=== PATIENT | female | born 1980 | race Caucasian/White ===

== ENCOUNTER 2020-12-26 23:33 | Emergency (ER) | payer BC, MEDICAID ==
--- NOTE | 2020-12-27 01:07 | EDM.PDOC ---
ED HPI GENERAL MEDICAL PROBLEM - General Stated Complaint: LEG CRAMPS Time Seen by Provider: 12/27/20 00:59 Source of Information: Reports: Patient History Limitations: Reports: No Limitations - History of Present Illness INITIAL COMMENTS - FREE TEXT/NARRATIVE: 40-year-old female past medical history insulin-dependent diabetes, frequent yeast infections, frequent UTIs presents for multiple complaints. Patient notes that she has been out of her medications for roughly 5 weeks due to medical insurance issues. She is due to get medical insurance reinstated in February. Patient did get a box of medications tonight. Patient states that since around 8 PM she has had cramping to her legs. She notes that she has had symptoms of UTI for several days and has been drinking a lot of fluids which she notes contributes to her leg cramping in the past. The cramping is worse in the left leg from the ankle up to the knee although she is also experiencing cramping in the right ankle. She states that this happens very frequently but normally goes away after several minutes however tonight it is not going away. Patient notes that she think she has a yeast infection as well. bilateral legs Pain Score (Numeric/FACES): 7 - Related Data Allergies Allergy/AdvReac Type Severity Reaction Status Date / Time codeine Allergy Rash Verified 12/27/20 01:21 Home Meds: Home Meds Fluconazole [Diflucan] 200 mg PO DAILY 7 Days #7 tablet 12/27/20 [Rx] Gabapentin [Neurontin] 300 mg PO BID 12/27/20 [History] Insulin Glargine,Hum.Rec.Anlog [Semglee] 100 units SUBCUT DAILY 12/27/20 [History] Insulin Lispro [Admelog] 17 units SUBCUT QID 12/27/20 [History] Lixisenatide [Adlyxin] 22 units SUBCUT DAILY 12/27/20 [History] ED ROS GENERAL - Review of Systems Review Of Systems: Comprehensive ROS is negative, except as noted in HPI. ED EXAM, GENERAL - Physical Exam Exam: See Below Exam Limited By: No Limitations General Appearance: Alert, WD/WN, No Apparent Distress Ears: Hearing Grossly Normal Throat/Mouth: Normal Voice, No Airway Compromise Head: Atraumatic, Normocephalic Neck: Normal Inspection Respiratory/Chest: No Respiratory Distress, Lungs Clear, Normal Breath Sounds, No Accessory Muscle Use Cardiovascular: Normal Peripheral Pulses, Regular Rate, Rhythm GI/Abdominal: Soft, Non-Tender Extremities: Normal Inspection, Other (No swelling, erythema, edema of bilateral lower extremities) Neurological: Alert, Oriented Psychiatric: Normal Affect, Normal Mood Skin Exam: Warm, Dry, Intact, Normal Color Course - Vital Signs Last Recorded V/S: Last Vital Signs Temp 98 F 12/27/20 01:10 Pulse 105 H 12/27/20 01:10 Resp 18 12/27/20 01:10 BP 132/85 12/27/20 01:10 Pulse Ox 94 L 12/27/20 01:10 - Orders/Labs/Meds Orders: Active Orders 24 hr Category Date Time Status Blood Glucose Check, Bedside [RC] ONETIME Care 12/27/20 01:12 Active Saline Lock Insert [OM.PC] Stat Oth 12/27/20 01:12 Ordered Labs: Laboratory Tests 12/27/20 12/27/20 12/27/20 Range/Units 01:25 01:25 01:25 WBC 12.28 H (4.0-11.0) K/uL RBC 5.13 (4.30-5.90) M/uL Hgb 14.1 (12.0-16.0) g/dL Hct 41.0 (36.0-46.0) % MCV 79.9 L (80.0-98.0) fL MCH 27.5 (27.0-32.0) pg MCHC 34.4 (31.0-37.0) g/dL RDW Std Deviation 38.4 (28.0-62.0) fl RDW Coeff of Tiffany 14 (11.0-15.0) % Plt Count 262 (150-400) K/uL MPV 11.50 (7.40-12.00) fL Neut % (Auto) 62.7 (48.0-80.0) % Lymph % (Auto) 28.8 (16.0-40.0) % Teller % (Auto) 7.3 (0.0-15.0) % Eos % (Auto) 0.9 (0.0-7.0) % Baso % (Auto) 0.3 (0.0-1.5) % Neut # (Auto) 7.7 H (1.4-5.7) K/uL Lymph # (Auto) 3.5 H (0.6-2.4) K/uL Teller # (Auto) 0.9 H (0.0-0.8) K/uL Eos # (Auto) 0.1 (0.0-0.7) K/uL Baso # (Auto) 0.0 (0.0-0.1) K/uL Sodium 136 (136-145) mmol/L Potassium 3.9 (3.5-5.1) mmol/L Chloride 99 (98-107) mmol/L Carbon Dioxide 28.2 (21.0-32.0) mmol/L BUN 11 (7.0-18.0) mg/dL Creatinine 0.8 (0.6-1.0) mg/dL Est Cr Clr Drug Dosing 95.24 mL/min Estimated GFR (MDRD) > 60.0 ml/min Glucose 319 H (74-106) mg/dL POC Glucose 310 H (70-99) mg/dL Calcium 8.6 (8.5-10.1) mg/dL Magnesium 1.6 L (1.8-2.4) mg/dL Total Bilirubin 0.3 (0.2-1.0) mg/dL AST 16 (15-37) IU/L ALT 21 (14-63) IU/L Alkaline Phosphatase 107 (46-116) U/L Total Protein 7.3 (6.4-8.2) g/dL Albumin 3.7 (3.4-5.0) g/dL Globulin 3.6 (2.6-4.0) g/dL Albumin/Globulin Ratio 1.0 (0.9-1.6) Urine Color Urine Appearance Urine pH (5.0-8.0) Ur Specific [place] (1.001-1.035) Urine Protein (NEGATIVE) mg/dL Urine Glucose (UA) (NEGATIVE) mg/dL Urine Ketones (NEGATIVE) mg/dL Urine Occult Blood (NEGATIVE) Urine Nitrite (NEGATIVE) Urine Bilirubin (NEGATIVE) Urine Urobilinogen (<2.0) EU/dL Ur Leukocyte Esterase (NEGATIVE) Urine HCG, Qual (NEGATIVE) 12/27/20 12/27/20 12/27/20 Range/Units 02:50 02:50 02:51 WBC (4.0-11.0) K/uL RBC (4.30-5.90) M/uL Hgb (12.0-16.0) g/dL Hct (36.0-46.0) % MCV (80.0-98.0) fL MCH (27.0-32.0) pg MCHC (31.0-37.0) g/dL RDW Std Deviation (28.0-62.0) fl RDW Coeff of Tiffany (11.0-15.0) % Plt Count (150-400) K/uL MPV (7.40-12.00) fL Neut % (Auto) (48.0-80.0) % Lymph % (Auto) (16.0-40.0) % Teller % (Auto) (0.0-15.0) % Eos % (Auto) (0.0-7.0) % Baso % (Auto) (0.0-1.5) % Neut # (Auto) (1.4-5.7) K/uL Lymph # (Auto) (0.6-2.4) K/uL Teller # (Auto) (0.0-0.8) K/uL Eos # (Auto) (0.0-0.7) K/uL Baso # (Auto) (0.0-0.1) K/uL Sodium (136-145) mmol/L Potassium (3.5-5.1) mmol/L Chloride (98-107) mmol/L Carbon Dioxide (21.0-32.0) mmol/L BUN (7.0-18.0) mg/dL Creatinine (0.6-1.0) mg/dL Est Cr Clr Drug Dosing mL/min Estimated GFR (MDRD) ml/min Glucose (74-106) mg/dL POC Glucose 344 H (70-99) mg/dL Calcium (8.5-10.1) mg/dL Magnesium (1.8-2.4) mg/dL Total Bilirubin (0.2-1.0) mg/dL AST (15-37) IU/L ALT (14-63) IU/L Alkaline Phosphatase (46-116) U/L Total Protein (6.4-8.2) g/dL Albumin (3.4-5.0) g/dL Globulin (2.6-4.0) g/dL Albumin/Globulin Ratio (0.9-1.6) Urine Color YELLOW Urine Appearance CLEAR Urine pH 5.5 (5.0-8.0) Ur Specific [place] 1.025 (1.001-1.035) Urine Protein NEGATIVE (NEGATIVE) mg/dL Urine Glucose (UA) 500 H (NEGATIVE) mg/dL Urine Ketones NEGATIVE (NEGATIVE) mg/dL Urine Occult Blood NEGATIVE (NEGATIVE) Urine Nitrite NEGATIVE (NEGATIVE) Urine Bilirubin NEGATIVE (NEGATIVE) Urine Urobilinogen 0.2 (<2.0) EU/dL Ur Leukocyte Esterase NEGATIVE (NEGATIVE) Urine HCG, Qual NEGATIVE (NEGATIVE) Meds: Medications Discontinued Medications Generic Name Dose Route Start Last Admin Trade Name Freq PRN Reason Stop Dose Admin Diazepam 5 mg 12/27/20 01:12 12/27/20 01:31 Diazepam 5 Mg Tab PO 12/27/20 01:13 5 mg ONETIME ONE Administration Fluconazole 150 mg 12/27/20 01:15 12/27/20 01:50 Fluconazole 150 Mg Tab PO 12/27/20 01:16 150 mg ONETIME ONE Administration Sodium Chloride 1,000 mls @ 999 mls/hr 12/27/20 01:58 12/27/20 02:14 Normal Saline IV 12/27/20 02:58 999 mls/hr .Bolus ONE Administration Magnesium Sulfate 2 gm/ Premix 50 mls @ 50 mls/hr 12/27/20 01:58 12/27/20 02:17 IV 12/27/20 02:57 50 mls/hr ONETIME ONE Administration Insulin Human Regular 5 unit 12/27/20 02:06 12/27/20 02:15 Insulin Regular, Human 100 Units/Ml 10 Ml Vial IVPUSH 12/27/20 02:07 5 units ONETIME ONE Administration Protocol Ketorolac Tromethamine 15 mg 12/27/20 01:12 12/27/20 01:31 Ketorolac 15 Mg/Ml Sdv IVPUSH 12/27/20 01:13 15 mg STAT STA Administration Sodium Chloride 10 ml 12/27/20 01:12 Sodium Chloride 0.9% 10 Ml Syringe FLUSH ASDIRECTED PRN Keep Vein Open Sodium Chloride 2.5 ml 12/27/20 01:12 Sodium Chloride 0.9% 2.5 Ml Syringe FLUSH ASDIRECTED PRN Keep Vein Open - Re-Assessments/Exams Free Text/Narrative Re-Assessment/Exam: 12/27/20 01:17 We will get labs including electrolytes. We will test the urine for signs of urinary tract infection. Will give fluconazole for presumptive yeast infection. Will give Toradol and Valium for painful muscle spasm. 12/27/20 02:17 Labs are remarkable for hyperglycemia without evidence of DKA. Patient also with low magnesium; replacement ordered. UA and Upreg pending. 12/27/20 03:05 UA without evidence of UTI; patient's symptoms possibly 2/2 yeast infection and glucosuria. Will d/c with fluconazole for yeast infection and recommendations to restart insulin therapy. Recommend f/u with PMD; information provided for establishment of care. Departure - Departure Time of Disposition: 03:05 Disposition: Home, Self-Care 01 Condition: Good Clinical Impression: Hyperglycemia, Yeast infection - Discharge Information Prescriptions: Fluconazole [Diflucan] 200 mg PO DAILY 7 Days #7 tablet Instructions: Hyperglycemia, Vsep-ve-Ciol, Vaginal Yeast Infection, Adult Referrals: PCP,None [Primary Care Provider] - Additional Instructions: The following information is given to patients seen in the emergency department who are being discharged to home. This information is to outline your options for follow-up care. We provide all patients seen in our emergency department with a follow-up referral. The need for follow-up, as well as the timing and circumstances, are variable depending upon the specifics of your emergency department visit. If you don't have a primary care physician on staff, we will provide you with a referral. We always advise you to contact your personal physician following an emergency department visit to inform them of the circumstance of the visit and for follow-up with them and/or the need for any referrals to a consulting specialist. The emergency department will also refer you to a specialist when appropriate. This referral assures that you have the opportunity for follow-up care with a specialist. All of these measure are taken in an effort to provide you with optimal care, which includes your follow-up. Under all circumstances we always encourage you to contact your private physician who remains a resource for coordinating your care. When calling for follow-up care, please make the office aware that this follow-up is from your recent emergency room visit. If for any reason you are refused follow-up, please contact the [facility] Emergency Department at and asked to speak to the emergency department charge nurse. Please follow up with your primary care physician. If you do not have a primary care physician, see below: [facility] [address] [place] [address] [phone] [facility] [address] [place], [place] [id number] [facility] [address] [place] [id number] Sepsis Event Note (ED) - Focused Exam Vital Signs: Vital Signs Temp Pulse Resp BP Pulse Ox 12/27/20 01:10 98 F 105 H 18 132/85 94 L - My Orders Last 24 Hours: My Active Orders 12/27/20 01:12 Blood Glucose Check, Bedside [RC] ONETIME Saline Lock Insert [OM.PC] Stat - Assessment/Plan Last 24 Hours: My Active Orders 12/27/20 01:12 Blood Glucose Check, Bedside [RC] ONETIME Saline Lock Insert [OM.PC] Stat
[2020-12-27] MEDS ORDERED: Sodium Chloride 0.9% 10 ML Syringe FLUSH PRN (01:12)
[2020-12-27] MEDS ORDERED: Sodium Chloride 0.9% 2.5 ML Syringe FLUSH PRN (01:12)
[2020-12-27] MEDS ORDERED: Ketorolac 15 MG/ML SDV IVPUSH STA (01:12)
[2020-12-27] MEDS ORDERED: Diazepam 5 MG Tab PO ONE (01:12)
[2020-12-27] MEDS ORDERED: Fluconazole 150 MG Tab PO ONE (01:15)
[2020-12-27 01:49] LABS: BLOOD UREA NITROGEN,BUN 11 mg/dL (7.0-18.0); CARBON DIOXIDE,CO2 28.2 mmol/L (21.0-32.0); CHLORIDE,CL 99 mmol/L (98-107); GLUCOSE RANDOM 319 mg/dL (74-106); POTASSIUM,K 3.9 mmol/L (3.5-5.1); SODIUM,NA 136 mmol/L (136-145)
[2020-12-27] MEDS ORDERED: Magnesium Sulfate/Water 2 GM in Premix Bag 1 BAG IV ONE (01:58)
[2020-12-27] MEDS ORDERED: Sodium Chloride 0.9% 1,000 ML IV ONE (01:58)
[2020-12-27] MEDS ORDERED: Insulin Regular, Human 100 Units/ML 10 ML Vial IVPUSH ONE (02:06)
== END 2020-12-27 03:20 | disposition home or self-care (01) ==
LOC: MW.ED 23:33
DX: B37.9 Candidiasis, unspecified (principal); E11.65 Type 2 diabetes mellitus with hyperglycemia; Z88.5 Allergy status to narcotic agent; Z79.4 Long term (current) use of insulin
CPT/HCPCS: 36415; 80053; 81003; 81025; 82947; 83735; 85025; 96365; 96375; 99284; A9270; J1885; J3475; J7030; J1815-GY

== ENCOUNTER 2021-01-20 20:25 | Emergency (ER) | payer MEDICAID ==
[2021-01-20] MEDS ORDERED: Sodium Chloride 0.9% 2.5 ML Syringe FLUSH PRN (20:47)
[2021-01-20] MEDS ORDERED: Sodium Chloride 0.9% 10 ML Syringe FLUSH PRN (20:47)
[2021-01-20] MEDS ORDERED: Ketorolac 15 MG/ML SDV IVPUSH ONE (20:47)
[2021-01-20] MEDS ORDERED: Sodium Chloride 0.9% 1,000 ML IV ONE (20:47)
[2021-01-20 21:42] LABS: BLOOD UREA NITROGEN,BUN 9 mg/dL (7.0-18.0); CARBON DIOXIDE,CO2 24.8 mmol/L (21.0-32.0); CHLORIDE,CL 94 mmol/L (98-107); POTASSIUM,K 4.3 mmol/L (3.5-5.1); SODIUM,NA 131 mmol/L (136-145)
[2021-01-20 21:43] LABS: GLUCOSE RANDOM 584 mg/dL (74-106)
[2021-01-20] MEDS ORDERED: Glucagon,Human Recombinant 1 MG Vial IM PRN (22:01)
[2021-01-20] MEDS ORDERED: 50% Dextrose in Water 50 ML Syringe IVPUSH PRN (22:01)
[2021-01-20] MEDS ORDERED: Insulin Regular, Human 100 Units/ML 10 ML Vial IVPUSH ONE (22:01)
[2021-01-20] MEDS ORDERED: Iopamidol 755 MG/ML 500 ML Multipack Bottle IVPUSH STA (22:07)
--- NOTE | 2021-01-20 22:37 | CT ---
INDICATION: LLQ abdominal pain. CT ABDOMEN AND PELVIS WITH CONTRAST TECHNIQUE: Multidetector CT imaging was performed through the abdomen and pelvis following intravenous contrast administration using 100 mL Isovue 370. Coronal and sagittal reconstructions were generated. COMPARISON: None. FINDINGS: Lower chest: Lung bases are clear. Liver: Moderate hepatomegaly. Diffuse fatty infiltration of the liver. Gallbladder and bile ducts: Round 3 centimeter diameter peripherally calcified gallstone in the region of the gallbladder neck. Additional smaller and less densely calcified gallstones are also present. No definite gallbladder wall thickening or pericholecystic fat stranding to suggest cholecystitis. No biliary dilation identified. Pancreas: Unremarkable. Spleen: Mild splenomegaly measuring 14.7 centimeters. Adrenals: No nodules or masses. Kidneys, ureters, and urinary bladder: Small nonobstructing left intrarenal stone. No bladder mass or definite wall thickening. Gastrointestinal tract and abdominal wall: Normal caliber small bowel without wall thickening. The appendix is normal. Colon diverticula without evidence of diverticulitis. Small fat-containing umbilical hernia. Vascular structures: Normal for age. Peritoneum: No free air, abscess, or significant free fluid. Lymph nodes: No pathologically enlarged nodes identified. Reproductive organs: No pelvic masses. Bones: Minor spinal degenerative changes. IMPRESSION: 1. No acute abnormality identified. No cause for the patient`s left lower quadrant symptoms is demonstrated. 2. Cholelithiasis without CT evidence of cholecystitis. 3. Hepatosplenomegaly. Fatty infiltration of the liver. BRIDGET HERNANDEZ MD [employer] Dictated by Aakash Hernandez MD @ 01/20/2021 10:34:26 PM Please note that all CT scans at this facility use dose modulation, iterative reconstruction, and/or weight-based dosing when appropriate to reduce radiation dose to as low as reasonably achievable. Dictated by: Aakash Hernandez MD @ 01/20/2021 22:34:45 (Electronically Signed)
[2021-01-20] MEDS ORDERED: HYDROmorphone 1 MG/ML Syringe IVPUSH ONE (23:06)
[2021-01-20] MEDS ORDERED: Ketorolac 15 MG/ML SDV IVPUSH STA (23:06)
[2021-01-20] MEDS ORDERED: Ondansetron 4 MG/2 ML SDV IVPUSH ONE (23:06)
--- NOTE | 2021-01-20 23:35 | EDM.PDOC ---
ED HPI GENERAL MEDICAL PROBLEM - General Chief Complaint: Abdominal Pain Stated Complaint: ABDOMINAL PAIN Time Seen by Provider: 01/20/21 20:40 - History of Present Illness INITIAL COMMENTS - FREE TEXT/NARRATIVE: HISTORY AND PHYSICAL: History of present illness: This is a 40-year-old female with a history significant for diabetes, on insulin, who presents ER today secondary to pain to her left lower quadrant which started yesterday. Patient reports that although the pain started yesterday it was intermittent and then today the pain was severe at has been constant since she woke up. Patient denies any recent fevers, shakes, chills, nausea, vomiting, diarrhea, dysuria, frequency or urgency, chest pain, shortness of breath. Patient reports he been telling p.o. solids and liquids well. Patient has any melena or bright red blood per rectum. Patient denies any hematuria. Patient reports that she is taking acetaminophen at home without any significant pain relief. Patient has any vaginal discharge or bleeding. Review of systems: As per history of present illness and below otherwise all systems reviewed and negative. Past medical history: As per history of present illness and as reviewed below otherwise non contributory. Surgical history: As per history of present illness and as reviewed below otherwise noncontributory. Social history: No reported history of drug abuse. Family history: As per history of present illness and as reviewed below otherwise noncontributory. Physical exam: This patient was seen and evaluated during the 2019 SARS-CoV-2 novel coronavirus pandemic period. Community viral transmission is ongoing at time of this encounter and the emergency department is operating under pandemic response procedures. Constitutional: Patient is oriented to person, place, and time. Appears well- developed and well-nourished. No distress. HEENT: Moist mucous membranes Head: Normocephalic and atraumatic Eyes: Right eye exhibits no discharge. Left eye exhibits no discharge. No sc leral icterus Neck: Normal range of motion. No tracheal deviation present. Cardiovascular: Normal rate and regular rhythm. Pulmonary: Effort normal, no respiratory distress. Abd: Soft, nondistended, no rebound/guarding, no psoas or obturator signs, no tenderness at Mcberney's point, no Jaime's sign. Pt does not present with an exam that would be consistent with an acute surgical abdomen at this time. Positive tenderness palpation left lower quadrant Musculoskeletal: Normal range of motion Neurologic: Alert and oriented to person, place and time. Skin: Liberal, warm and dry. Psychiatric: Normal mood and affect. Behavior is normal. Judgment and thought content normal. Nursing note and vital signs have been reviewed Diagnostics: Patient's labs were all within normal limits except for significant hyperglycemia. Patient has a blood sugar of 584 but has no anion gap and has no acidosis. Patient's UA reveals large amount of glucose with no ketones no evidence of infection. Patient CT scan of her abdomen pelvis revealed no evidence of acute abdominal pathology. Therapeutics: While in the ED, the patient received 15 mg of IV Toradol followed by Dilaudid 0.5/Toradol 15 mg secondary to pain returning. Patient received 10 units of insulin IV as well as 1 L of NSS. Patient's repeat blood sugar was improved at 361. Assessment and plan: Is a 40-year-old female who presents ER today complaining of left lower quadrant abdominal pain who was noted to have hyperglycemia without evidence of DKA. Patient's hyperglycemia was treated in the ED with IV fluids and insulin with improvement. Patient is not in DKA by labs and urine. Patient had a CT scan of her abdomen pelvis as well as labs which were all unremarkable did not reveal the cause of her abdominal pain at this time. Patient was treated with Dilaudid and Toradol to assist with her pain. Patient is clinically hemodynamically stable and does not present with any signs or symptoms for an acute surgical abdomen. At this time I feel the patient can be discharged home with a prescription for ibuprofen to assist her with her pain and instructions to follow-up with her doctor soon as possible for reevaluation. Patient also be given a short course of tramadol to assist her with her pain to take in addition to the ibuprofen. Reassessment at the time of disposition demonstrates that the patient is in no acute distress. The patient has remained stable throughout the entire ED visit and is without objective evidence for acute process requiring urgent intervention or hospitalization. The patient is stable for discharge, counseling is provided as documented above, discussed symptomatic treatment and specific conditions for return. I have spoken with the patient/caregiver and discussed todays findings, in addition to providing specific details for the plan of care. Questions are answered and there is agreement with the plan. Definitive disposition and diagnosis as appropriate pending reevaluation and review of above. Left Lower Abdomen Pain Score (Numeric/FACES): 5 - Related Data Allergies Allergy/AdvReac Type Severity Reaction Status Date / Time codeine Allergy Rash Verified 12/27/20 01:21 Home Meds: Home Meds Fluconazole [Diflucan] 200 mg PO DAILY 7 Days #7 tablet 12/27/20 [Rx] Gabapentin [Neurontin] 300 mg PO BID 12/27/20 [History] Insulin Glargine,Hum.Rec.Anlog [Semglee] 100 units SUBCUT DAILY 12/27/20 [History] Insulin Lispro [Admelog] 17 units SUBCUT QID 12/27/20 [History] Lixisenatide [Adlyxin] 22 units SUBCUT DAILY 12/27/20 [History] Ibuprofen 600 mg PO Q6HR PRN #30 tablet 01/20/21 [Rx] Ondansetron [Zofran ODT] 4 mg PO Q6H PRN #12 tab.dis 01/20/21 [Rx] traMADol [Ultram] 50 mg PO Q6H PRN #12 tab 01/20/21 [Rx] Past Medical History - Past Health History Medical/Surgical History: Denies Medical/Surgical History HEENT History: Reports: None Cardiovascular History: Reports: Hypertension Respiratory History: Reports: None Gastrointestinal History: Reports: None Genitourinary History: Reports: UTI, Recurrent PERL PROGRAMMER History: Reports: None, Other (See Below) Other PERL PROGRAMMER History: history of yeast infections Musculoskeletal History: Reports: None Neurological History: Reports: None Psychiatric History: Reports: None Endocrine/Metabolic History: Reports: Diabetes, Type II Hematologic History: Reports: None Immunologic History: Reports: None Oncologic (Cancer) History: Reports: None Dermatologic History: Reports: None - Infectious Disease History Infectious Disease History: Reports: None - Past Surgical History Head Surgeries/Procedures: Reports: None Female Surgical History: Reports: Section Social & Family History - Family History Family Medical History: No Pertinent Family History - Tobacco Use Tobacco Use Status *Q: Never Tobacco User - Caffeine Use Caffeine Use: Reports: None - Recreational Drug Use Recreational Drug Use: No ED ROS GENERAL - Review of Systems Review Of Systems: See Below ED EXAM, GENERAL - Physical Exam Exam: See Below Course - Vital Signs Last Recorded V/S: Last Vital Signs Temp 98.0 F 01/20/21 20:40 Pulse 92 01/20/21 22:20 Resp 18 01/20/21 22:20 BP 113/54 L 01/20/21 22:20 Pulse Ox 98 01/20/21 22:20 - Orders/Labs/Meds Orders: Active Orders 24 hr Category Date Time Status Dextrose 50% in Water Med 01/20/21 22:01 Active 50 ml IVPUSH ASDIRECTED PRN Glucagon,Human Recombinant [GlucaGen] Med 01/20/21 22:01 Active 1 mg IM ASDIRECTED PRN Sodium Chloride 0.9% [Saline Flush] Med 01/20/21 20:47 Active 10 ml FLUSH ASDIRECTED PRN Sodium Chloride 0.9% [Saline Flush] Med 01/20/21 20:47 Active 2.5 ml FLUSH ASDIRECTED PRN Saline Lock Insert [OM.PC] Stat Oth 01/20/21 20:48 Ordered Medication Orders Dextrose/Water (50% Dextrose In Water 50 Ml Syringe) 50 ml IVPUSH ASDIRECTED PRN PRN Reason: Hypoglycemia Glucagon (Glucagon,Human Recombinant 1 Mg Vial) 1 mg IM ASDIRECTED PRN PRN Reason: Hypoglycemia Sodium Chloride (Sodium Chloride 0.9% 10 Ml Syringe) 10 ml FLUSH ASDIRECTED PRN PRN Reason: Keep Vein Open Last Admin: 01/20/21 22:16 Dose: 10 ml Documented by: KACY Sodium Chloride (Sodium Chloride 0.9% 2.5 Ml Syringe) 2.5 ml FLUSH ASDIRECTED PRN PRN Reason: Keep Vein Open Last Admin: 01/20/21 22:16 Dose: 2.5 ml Documented by: KACY Labs: Laboratory Tests 01/20/21 01/20/21 01/20/21 Range/Units 21:00 21:00 21:10 WBC 9.95 (4.0-11.0) K/uL RBC 4.92 (4.30-5.90) M/uL Hgb 13.7 (12.0-16.0) g/dL Hct 40.2 (36.0-46.0) % MCV 81.7 (80.0-98.0) fL MCH 27.8 (27.0-32.0) pg MCHC 34.1 (31.0-37.0) g/dL RDW Std Deviation 40.4 (28.0-62.0) fl RDW Coeff of Tiffany 14 (11.0-15.0) % Plt Count 250 (150-400) K/uL MPV 11.70 (7.40-12.00) fL Neut % (Auto) 61.2 (48.0-80.0) % Lymph % (Auto) 32.2 (16.0-40.0) % Gentry % (Auto) 5.0 (0.0-15.0) % Eos % (Auto) 1.2 (0.0-7.0) % Baso % (Auto) 0.4 (0.0-1.5) % Neut # (Auto) 6.1 H (1.4-5.7) K/uL Lymph # (Auto) 3.2 H (0.6-2.4) K/uL Gentry # (Auto) 0.5 (0.0-0.8) K/uL Eos # (Auto) 0.1 (0.0-0.7) K/uL Baso # (Auto) 0.0 (0.0-0.1) K/uL Nucleated RBC % 0.0 /100WBC Nucleated RBCs # 0 K/uL Sodium (136-145) mmol/L Potassium (3.5-5.1) mmol/L Chloride (98-107) mmol/L Carbon Dioxide (21.0-32.0) mmol/L BUN (7.0-18.0) mg/dL Creatinine (0.6-1.0) mg/dL Est Cr Clr Drug Dosing mL/min Estimated GFR (MDRD) ml/min Glucose (74-106) mg/dL POC Glucose (70-99) mg/dL Calcium (8.5-10.1) mg/dL Total Bilirubin (0.2-1.0) mg/dL AST (15-37) IU/L ALT (14-63) IU/L Alkaline Phosphatase (46-116) U/L Total Protein (6.4-8.2) g/dL Albumin (3.4-5.0) g/dL Globulin (2.6-4.0) g/dL Albumin/Globulin Ratio (0.9-1.6) Urine Color YELLOW Urine Appearance CLEAR Urine pH 6.0 (5.0-8.0) Ur Specific Bee 1.010 (1.001-1.035) Urine Protein NEGATIVE (NEGATIVE) mg/dL Urine Glucose (UA) >=1000 (NEGATIVE) mg/dL Urine Ketones NEGATIVE (NEGATIVE) mg/dL Urine Occult Blood TRACE-INTACT H (NEGATIVE) Urine Nitrite NEGATIVE (NEGATIVE) Urine Bilirubin NEGATIVE (NEGATIVE) Urine Urobilinogen 0.2 (<2.0) EU/dL Ur Leukocyte Esterase NEGATIVE (NEGATIVE) Urine RBC 0-2 (0-2/HPF) Urine WBC 0-3 (0-5/HPF) Ur Epithelial Cells FEW (NONE-FEW) Urine Bacteria FEW (NEGATIVE) Urine HCG, Qual NEGATIVE (NEGATIVE) 01/20/21 01/20/21 Range/Units 21:10 23:06 WBC (4.0-11.0) K/uL RBC (4.30-5.90) M/uL Hgb (12.0-16.0) g/dL Hct (36.0-46.0) % MCV (80.0-98.0) fL MCH (27.0-32.0) pg MCHC (31.0-37.0) g/dL RDW Std Deviation (28.0-62.0) fl RDW Coeff of Tiffany (11.0-15.0) % Plt Count (150-400) K/uL MPV (7.40-12.00) fL Neut % (Auto) (48.0-80.0) % Lymph % (Auto) (16.0-40.0) % Gentry % (Auto) (0.0-15.0) % Eos % (Auto) (0.0-7.0) % Baso % (Auto) (0.0-1.5) % Neut # (Auto) (1.4-5.7) K/uL Lymph # (Auto) (0.6-2.4) K/uL Gentry # (Auto) (0.0-0.8) K/uL Eos # (Auto) (0.0-0.7) K/uL Baso # (Auto) (0.0-0.1) K/uL Nucleated RBC % /100WBC Nucleated RBCs # K/uL Sodium 131 L (136-145) mmol/L Potassium 4.3 (3.5-5.1) mmol/L Chloride 94 L (98-107) mmol/L Carbon Dioxide 24.8 (21.0-32.0) mmol/L BUN 9 (7.0-18.0) mg/dL Creatinine 0.9 (0.6-1.0) mg/dL Est Cr Clr Drug Dosing 84.66 mL/min Estimated GFR (MDRD) > 60.0 ml/min Glucose 584 H* (74-106) mg/dL POC Glucose 361 H (70-99) mg/dL Calcium 8.7 (8.5-10.1) mg/dL Total Bilirubin 0.3 (0.2-1.0) mg/dL AST 10 L (15-37) IU/L ALT 20 (14-63) IU/L Alkaline Phosphatase 120 H (46-116) U/L Total Protein 7.1 (6.4-8.2) g/dL Albumin 3.6 (3.4-5.0) g/dL Globulin 3.5 (2.6-4.0) g/dL Albumin/Globulin Ratio 1.0 (0.9-1.6) Urine Color Urine Appearance Urine pH (5.0-8.0) Ur Specific Bee (1.001-1.035) Urine Protein (NEGATIVE) mg/dL Urine Glucose (UA) (NEGATIVE) mg/dL Urine Ketones (NEGATIVE) mg/dL Urine Occult Blood (NEGATIVE) Urine Nitrite (NEGATIVE) Urine Bilirubin (NEGATIVE) Urine Urobilinogen (<2.0) EU/dL Ur Leukocyte Esterase (NEGATIVE) Urine RBC (0-2/HPF) Urine WBC (0-5/HPF) Ur Epithelial Cells (NONE-FEW) Urine Bacteria (NEGATIVE) Urine HCG, Qual (NEGATIVE) Meds: Medications Generic Name Dose Route Start Last Admin Trade Name Freq PRN Reason Stop Dose Admin Dextrose/Water 50 ml 01/20/21 22:01 50% Dextrose In Water 50 Ml Syringe IVPUSH ASDIRECTED PRN Hypoglycemia Glucagon 1 mg 01/20/21 22:01 Glucagon,Human Recombinant 1 Mg Vial IM ASDIRECTED PRN Hypoglycemia Sodium Chloride 10 ml 01/20/21 20:47 01/20/21 22:16 Sodium Chloride 0.9% 10 Ml Syringe FLUSH 10 ml ASDIRECTED PRN Administration Keep Vein Open Sodium Chloride 2.5 ml 01/20/21 20:47 01/20/21 22:16 Sodium Chloride 0.9% 2.5 Ml Syringe FLUSH 2.5 ml ASDIRECTED PRN Administration Keep Vein Open Discontinued Medications Generic Name Dose Route Start Last Admin Trade Name Brigid PRN Reason Stop Dose Admin Hydromorphone HCl 0.5 mg 01/20/21 23:06 Hydromorphone 1 Mg/Ml Syringe IVPUSH 01/20/21 23:07 ONETIME ONE Sodium Chloride 1,000 mls @ 999 mls/hr 01/20/21 20:47 01/20/21 21:19 Normal Saline IV 01/20/21 21:47 999 mls/hr .Bolus ONE Administration Insulin Human Regular 10 unit 01/20/21 22:01 01/20/21 22:12 Insulin Regular, Human 100 Units/Ml 10 Ml Vial IVPUSH 01/20/21 22:02 10 units ONETIME ONE Administration Protocol Iopamidol 100 ml 01/20/21 22:07 01/20/21 22:09 Iopamidol 755 Mg/Ml 500 Ml Multipack Bottle IVPUSH 01/20/21 22:08 100 ml ONETIME STA Administration Ketorolac Tromethamine 15 mg 01/20/21 20:47 01/20/21 21:21 Ketorolac 15 Mg/Ml Sdv IVPUSH 01/20/21 20:48 15 mg ONETIME ONE Administration Ketorolac Tromethamine 15 mg 01/20/21 23:06 Ketorolac 15 Mg/Ml Sdv IVPUSH 01/20/21 23:07 Q6H STA Ondansetron HCl 4 mg 01/20/21 23:06 Ondansetron 4 Mg/2 Ml Sdv IVPUSH 01/20/21 23:07 ONETIME ONE Departure - Departure Time of Disposition: 23:33 Disposition: Home, Self-Care 01 Condition: Good Clinical Impression: Abdominal pain, Hyperglycemia - Discharge Information Instructions: Hyperglycemia, [id number], Abdominal Pain, Adult, [id number] Referrals: PCP,None [Primary Care Provider] - Additional Instructions: You were seen and evaluated in the ER today secondary to abdominal pain. The work-up in the ER did not reveal a serious source for your pain. Your blood sugar was also noted to be markedly elevated. In the ER he received a CT scan of your abdomen pelvis as well as blood tests which were all unremarkable except for your elevated blood sugar. We treated your elevated blood sugar with normal saline solution through your IV as well as IV insulin. Your blood sugar has improved from greater than 500 and now is 361. Please make an appointment to see your doctor early next week to be reevaluated. He will be sent home with a prescription for ibuprofen and Ultram to assist you with your pain and discomfort. Please return to the ER if you develop any new or concerning symptoms prior to seeing your family doctor. The following information is given to patients seen in the emergency department who are being discharged to home. This information is to outline your options for follow-up care. We provide all patients seen in our emergency department with a follow-up referral. The need for follow-up, as well as the timing and circumstances, are variable de pending upon the specifics of your emergency department visit. If you don't have a primary care physician on staff, we will provide you with a referral. We always advise you to contact your personal physician following an emergency department visit to inform them of the circumstance of the visit and for follow-up with them and/or the need for any referrals to a consulting specialist. The emergency department will also refer you to a specialist when appropriate. This referral assures that you have the opportunity for follow-up care with a specialist. All of these measure are taken in an effort to provide you with optimal care, which includes your follow-up. Under all circumstances we always encourage you to contact your private physician who remains a resource for coordinating your care. When calling for follow-up care, please make the office aware that this follow-up is from your recent emergency room visit. If for any reason you are refused follow-up, please contact the [facility] Emergency Department at and asked to speak to the emergency department charge nurse. [facility] [address] [place] [id number] [id number] Sepsis Event Note (ED) - Focused Exam Vital Signs: Vital Signs Temp Pulse Resp BP Pulse Ox 01/20/21 22:20 92 18 113/54 L 98 01/20/21 20:40 98.0 F 103 H 18 137/87 97 - My Orders Last 24 Hours: My Active Orders 01/20/21 20:47 Sodium Chloride 0.9% [Saline Flush] 10 ml FLUSH ASDIRECTED PRN Sodium Chloride 0.9% [Saline Flush] 2.5 ml FLUSH ASDIRECTED PRN 01/20/21 20:48 Saline Lock Insert [OM.PC] Stat 01/20/21 22:01 Dextrose 50% in Water 50 ml IVPUSH ASDIRECTED PRN Glucagon,Human Recombinant [GlucaGen] 1 mg IM ASDIRECTED PRN - Assessment/Plan Last 24 Hours: My Active Orders 01/20/21 20:47 Sodium Chloride 0.9% [Saline Flush] 10 ml FLUSH ASDIRECTED PRN Sodium Chloride 0.9% [Saline Flush] 2.5 ml FLUSH ASDIRECTED PRN 01/20/21 20:48 Saline Lock Insert [OM.PC] Stat 01/20/21 22:01 Dextrose 50% in Water 50 ml IVPUSH ASDIRECTED PRN Glucagon,Human Recombinant [GlucaGen] 1 mg IM ASDIRECTED PRN
== END 2021-01-21 00:05 | disposition home or self-care (01) ==
LOC: MW.ED 20:25
DX: R10.32 Left lower quadrant pain (principal); E11.65 Type 2 diabetes mellitus with hyperglycemia; I10 Essential (primary) hypertension; Z79.4 Long term (current) use of insulin
CPT/HCPCS: 36415; 74177; 80053; 81001; 81025; 82947; 85025; 96374; 96375; 99285; J1170; J1885; J7030; Q9967; 99284; J1815-GY

== ENCOUNTER 2021-01-27 17:47 | Emergency (ER) | payer MEDICAID ==
--- NOTE | 2021-01-27 19:50 | EDM.PDOC ---
ED HPI GENERAL MEDICAL PROBLEM - General Chief Complaint: Upper Extremity Injury/Pain Stated Complaint: RT WRIST PAIN Time Seen by Provider: 01/27/21 19:20 - History of Present Illness INITIAL COMMENTS - FREE TEXT/NARRATIVE: History of present illness: [] The patient reports she fell on 20 January 2021 and was seen in the emergency room but not x-rayed. Review of the records indicates he was here for GI bleeding and abdominal pain and did not mention a fall to the doctor. The patient says he has increasing pain since. The patient has pain in the wrist and the elbow. She has a little tingling in the third and fourth digits of the left upper extremity distally. She denies any other injury or concerns at this time. Review of systems: As per history of present illness and below otherwise all systems reviewed and negative. Past medical history: As per history of present illness and as reviewed below otherwise noncontributory. Surgical history: As per history of present illness and as reviewed below otherwise n oncontributory. Social history: No reported history of drug or alcohol abuse. Family history: As per history of present illness and as reviewed below otherwise noncontributory. Physical exam: Constitutional - well developed, well-nourished and in no acute distress HEENT - normocephalic, no evidence of trauma - external nose and mouth normal - no mass in neck and no JVD - mucosae moist EYES - full EOM, PERRL, no icterus - no evidence of inflammation, injection, or drainage Respiratory - no respiratory distress, equal bilateral expansion, lungs clear to auscultation and no abnormal lung sounds Cardiovascular -capillary refill is normal in the nailbeds of the left upper extremity. Regular Rhythm with S1 and S2 appreciated and no murmur, gallop or rub. GI - abdomen soft without distension or organomegaly - normal bowel sounds - no guard or rebound Musculoskeletal tenderness in the wrist and the elbow of the left upper extremity. There is snuffbox tenderness in the anatomic snuffbox. Motion and alignment of the distal digits is normal. No gross deformity of long bones or joints - no tenderness, swelling or edema Neurologic -patient feels light touch and has normal movement of the distal left upper extremity. Alert and oriented times four - CN II-XII grossly intact - motor sensory and coordination symmetrically normal Psychiatric - appropriate mood and affect with normal thought content Hematologic - No petechiae or purpura - mucosa appropriate color and sclera not pale - normal nail bed color and refill Integument - no rash or evidence of trauma - normal turgor Diagnostics: [] Therapeutics: [] Impression: [] Plan: [] Definitive disposition and diagnosis as appropriate pending reevaluation and review of above. Right Wrist Pain Score (Numeric/FACES): 7 - Related Data Allergies Allergy/AdvReac Type Severity Reaction Status Date / Time codeine Allergy Rash Verified 01/27/21 18:57 Home Meds: Home Meds Fluconazole [Diflucan] 200 mg PO DAILY 7 Days #7 tablet 12/27/20 [Rx] Gabapentin [Neurontin] 300 mg PO BID 12/27/20 [History] Insulin Glargine,Hum.Rec.Anlog [Semglee] 100 units SUBCUT DAILY 12/27/20 [History] Insulin Lispro [Admelog] 17 units SUBCUT QID 12/27/20 [History] Lixisenatide [Adlyxin] 22 units SUBCUT DAILY 12/27/20 [History] Ibuprofen 600 mg PO Q6HR PRN #30 tablet 01/20/21 [Rx] Ondansetron [Zofran ODT] 4 mg PO Q6H PRN #12 tab.dis 01/20/21 [Rx] traMADol [Ultram] 50 mg PO Q6H PRN #12 tab 01/20/21 [Rx] Past Medical History - Past Health History Medical/Surgical History: Denies Medical/Surgical History HEENT History: Reports: None Cardiovascular History: Reports: Hypertension Respiratory History: Reports: None Gastrointestinal History: Reports: None Genitourinary History: Reports: UTI, Recurrent [employer]ISING [employer] History: Reports: None, Other (See Below) Other [employer] History: history of yeast infections Musculoskeletal History: Reports: None Neurological History: Reports: None Psychiatric History: Reports: None Endocrine/Metabolic History: Reports: Diabetes, Type II Hematologic History: Reports: None Immunologic History: Reports: None Oncologic (Cancer) History: Reports: None Dermatologic History: Reports: None - Infectious Disease History Infectious Disease History: Reports: None - Past Surgical History Head Surgeries/Procedures: Reports: None Female Surgical History: Reports: Section Social & Family History - Family History Family Medical History: No Pertinent Family History - Tobacco Use Tobacco Use Status *Q: Never Tobacco User - Caffeine Use Caffeine Use: Reports: None - Recreational Drug Use Recreational Drug Use: No Review of Systems - Review of Systems Review Of Systems: Comprehensive ROS is negative, except as noted in HPI. ED EXAM, GENERAL - Physical Exam Exam: See Below Free Text/Narrative:: My physical exam is in the HPI Course - Vital Signs Text/Narrative:: 2036 x-rays are normal. The patient has snuffbox tenderness so she will be splinted for 1 to 2 days and reexamine after that to make sure that she does not have a an occult navicular bone or scaphoid fracture. Last Recorded V/S: Last Vital Signs Temp 36.1 C 01/27/21 18:57 Pulse 94 01/27/21 18:57 Resp 16 01/27/21 18:57 BP 138/94 H 01/27/21 18:57 Pulse Ox 98 01/27/21 18:57 Departure - Departure Time of Disposition: 20:37 Disposition: Home, Self-Care 01 Condition: Good Clinical Impression: Contusion of right elbow, initial encounter, Contusion of right wrist, initial encounter, Fall - Discharge Information Instructions: Contusion, [id number] Referrals: PCP,None [Primary Care Provider] - Forms: ED Department Discharge Additional Instructions: You have a contusion and no fracture that is evident on x-ray. Because of the location of tenderness in the wrist at the snuffbox you should wear the splint for 1 to 2 days and then if it continues to be tender in that area follow-up with a hand surgeon (Dr. Owens and Gomez at [facility]). The hand surgeons are and [place]. They always gladly accept referrals here since we do not have a hand surgeon. [facility] - Primary Care [address] [place] [id number] [address] The following information is given to patients seen in the emergency department who are being discharged to home. This information is to outline your options for follow-up care. We provide all patients seen in our emergency department with a follow-up referral. The need for follow-up, as well as the timing and circumstances, are variable depending upon the specifics of your emergency department visit. If you don't have a primary care physician on staff, we will provide you with a referral. We always advise you to contact your personal physician following an emergency department visit to inform them of the circumstance of the visit and for follow-up with them and/or the need for any referrals to a consulting specialist. The emergency department will also refer you to a specialist when appropriate. This referral assures that you have the opportunity for follow-up care with a specialist. All of these measure are taken in an effort to provide you with optimal care, which includes your follow-up. Under all circumstances we always encourage you to contact your private physician who remains a resource for coordinating your care. When calling for follow-up care, please make the office aware that this follow-up is from your recent emergency room visit. If for any reason you are refused follow-up, please contact the [facility] Emergency Department at and asked to speak to the emergency department charge nurse. Sepsis Event Note (ED) - Evaluation Sepsis Screening Result: No Definite Risk - Focused Exam Vital Signs: Vital Signs Temp Pulse Resp BP Pulse Ox 01/27/21 18:57 36.1 C 94 16 138/94 H 98
--- NOTE | 2021-01-27 20:22 | CR ---
INDICATION: Trauma. TECHNIQUE: Three views of the right elbow. COMPARISON: None. IMPRESSION: No appreciable joint effusion. No fracture is identified. No subluxation or dislocation. Dictated by Pardeep Bolivar MD @ 01/27/2021 8:21:55 PM Dictated by: Pardeep Bolivar MD @ 01/27/2021 20:22:10 (Electronically Signed)
--- NOTE | 2021-01-27 20:26 | CR ---
INDICATION: Fall. TECHNIQUE: Three views of the right wrist. COMPARISON: None. IMPRESSION: No fracture is identified. No subluxation or dislocation. Dictated by Pardeep Bolivar MD @ 01/27/2021 8:25:36 PM Dictated by: Pardeep Bolivar MD @ 01/27/2021 20:25:39 (Electronically Signed)
== END 2021-01-27 20:54 | disposition home or self-care (01) ==
LOC: MW.ED 17:47
DX: S60.211A Contusion of right wrist, initial encounter (principal); S50.01XA Contusion of right elbow, initial encounter; I10 Essential (primary) hypertension; E11.9 Type 2 diabetes mellitus without complications; Z88.5 Allergy status to narcotic agent; W18.39XA Other fall on same level, initial encounter
CPT/HCPCS: 73080-26-RT; 73080-RT; 73110-26-RT; 73110-RT; 99283-25

== ENCOUNTER 2021-03-03 19:26 | Emergency (ER) | payer MEDICAID ==
--- NOTE | 2021-03-03 21:28 | EDM.PDOC ---
ED HPI GENERAL MEDICAL PROBLEM - General Chief Complaint: RAIL CAR OPERATOR Problem Stated Complaint: , SPOTTING Time Seen by Provider: 03/03/21 20:47 Source of Information: Reports: Patient History Limitations: Reports: No Limitations - History of Present Illness INITIAL COMMENTS - FREE TEXT/NARRATIVE: HISTORY AND PHYSICAL: History of present illness: Patient is a 40-year-old female who presents to the emergency room with complaints of abdominal cramping and vaginal bleeding in . Patient states she noticed some spotting when she went to use the bathroom with low pel tamara pain. 7, para 2. Patient denies any fever, chills, headache, change in vision, syncope or near syncope. Denies any chest pain, back pain, shortness of breath or cough. Denies any nausea, vomiting, diarrhea, constipation or dysuria. Has not noted any blood in urine or stool. Patient has been eating and drinking appropriately. No recent travel or sick contacts. Review of systems: As per history of present illness and below otherwise all systems reviewed and negative. Past medical history: As per history of present illness and as reviewed below otherwise noncontributory. Surgical history: As per history of present illness and as reviewed below otherwise noncontributory. Social history: See social history for further information Family history: As per history of present illness and as reviewed below otherwise noncontributory. Physical exam: General: Well developed and well nourished. Alert and orientated x 3. Nontoxic in appearance and in no acute distress. Vital signs are stable and have been reviewed by me. Nursing notes were reviewed. HEENT: Atraumatic, normocephalic, pupils equal and reactive bilaterally, negative for conjunctival pallor or scleral icterus, mucous membranes moist, TMs normal bilaterally, throat clear, neck supple, nontender, trachea midline. No drooling or trismus noted. No meningeal signs. No hot potato voice noted. Lungs: Clear to auscultation bilaterally. No wheezes, rales, or rhonchi. Chest nontender. Normal work of breathing, no accessory muscles used. Heart: S1S2, regular rate and rhythm without overt murmur, gallops, or rubs. No JVD. No peripheral edema Abdomen: Soft, nondistended, nontender. Normoactive bowel sounds. Negative for masses or costovertebral tenderness. Skin: Intact, warm, dry. No lesions or rashes noted. Hematologic: No petechiae or purpra. Mucosa appropriate color and normal nail bed color and refill. Extremities: Atraumatic, moves all extremities per self without difficulty or deficits, negative for cords or calf pain. Neurovascular unremarkable. Neuro: Awake, alert, oriented. Cranial nerves II through XII unremarkable. Cerebellum unremarkable. Motor and sensory unremarkable throughout. Exam nonf ocal. Psychiatric: Mood and affect are appropriate. Normal thought process. Answering questions appropriately. Please note that the patient was seen and evaluated during the 2019 SARS-CoV-2 novel coronavirus pandemic period. Community viral transmission is ongoing at time of this encounter and the emergency department is operating under pandemic response procedures. Medical Decision Making: Ultrasound shows a single IUP with approximate gestational age of 7 weeks and 2 days, heart rate 150 bpm. Small amount of free fluid in the endocervical canal. Patient does have a urinary tract infection, will treat with Keflex. She has not yet established with an RAIL CAR OPERATOR. I will repeat a quant HCG on Saturday. Encouraged pelvic rest. We reviewed and discussed all diagnostic findings. Patient voices understanding and is agreeable to plan of care. She denies any further questions or concerns. Will call Saturday to set up RAIL CAR OPERATOR, she states she plans on seeing Dr. Amaya. Diagnostics: CBC, CMP, Quant hCG, UA, OB ultrasound Therapeutics: Keflex Prescription: Keflex Impression: Threatened miscarriage UTI Plan: 1. Please start and/or continue to take your vitamin with folic acid once daily. 2. Pelvic rest until cleared by your OBGYN (no tampons, sex, etc...) 3. Tylenol as needed for pain management. 4. Follow up with your RAIL CAR OPERATOR next week. Repeat quantitative HCG should be drawn on Saturday. 5. Return to the ED as needed and as discussed. Definitive disposition and diagnosis as appropriate pending reevaluation and review of above. Treatments ENGINEERING TECHNICIAN PARKING: Reports: NSAIDS, Other (see below) Other Treatments ENGINEERING TECHNICIAN PARKING: ibuprofen 600 mg lower back/abd Pain Score (Numeric/FACES): 4 - Related Data Allergies Allergy/AdvReac Type Severity Reaction Status Date / Time codeine Allergy Rash Verified 03/03/21 20:16 Home Meds: Home Meds Insulin Glargine,Hum.Rec.Anlog [Semglee] 100 units SUBCUT DAILY 12/27/20 [History] Insulin Lispro [Admelog] 17 units SUBCUT QID 12/27/20 [History] Lixisenatide [Adlyxin] 22 units SUBCUT DAILY 12/27/20 [History] cephALEXin [Keflex] 500 mg PO BID 7 Days #14 cap 03/03/21 [Rx] Past Medical History - Past Health History Medical/Surgical History: Denies Medical/Surgical History HEENT History: Reports: None Cardiovascular History: Reports: Hypertension Respiratory History: Reports: None Gastrointestinal History: Reports: None Genitourinary History: Reports: UTI, Recurrent RAIL CAR OPERATOR History: Reports: , Other (See Below) Other RAIL CAR OPERATOR History: history of yeast infections Musculoskeletal History: Reports: None Neurological History: Reports: None Psychiatric History: Reports: None Endocrine/Metabolic History: Reports: Diabetes, Type II Hematologic History: Reports: None Immunologic History: Reports: None Oncologic (Cancer) History: Reports: None Dermatologic History: Reports: None - Infectious Disease History Infectious Disease History: Reports: Chicken Pox - Past Surgical History Head Surgeries/Procedures: Reports: None Female Surgical History: Reports: Section Social & Family History - Family History Family Medical History: No Pertinent Family History - Tobacco Use Tobacco Use Status *Q: Never Tobacco User Second Hand Smoke Exposure: No - Caffeine Use Caffeine Use: Reports: Soda - Recreational Drug Use Recreational Drug Use: No ED ROS GENERAL - Review of Systems Review Of Systems: Comprehensive ROS is negative, except as noted in HPI. ED EXAM - Physical Exam Exam: See Below (See dictation) Course - Vital Signs Last Recorded V/S: Last Vital Signs Temp 97.8 F 03/03/21 20:07 Pulse 94 03/03/21 23:14 Resp 18 03/03/21 23:14 BP 124/74 03/03/21 23:14 Pulse Ox 98 03/03/21 23:14 - Orders/Labs/Meds Labs: Laboratory Tests 03/03/21 03/03/21 03/03/21 Range/Units 20:15 21:43 21:43 WBC 11.05 H (4.0-11.0) K/uL RBC 4.91 (4.30-5.90) M/uL Hgb 13.9 (12.0-16.0) g/dL Hct 40.2 (36.0-46.0) % MCV 81.9 (80.0-98.0) fL MCH 28.3 (27.0-32.0) pg MCHC 34.6 (31.0-37.0) g/dL RDW Std Deviation 42.3 (28.0-62.0) fl RDW Coeff of Tiffany 14 (11.0-15.0) % Plt Count 221 (150-400) K/uL MPV 10.90 (7.40-12.00) fL Neut % (Auto) 71.7 (48.0-80.0) % Lymph % (Auto) 22.1 (16.0-40.0) % Brooks % (Auto) 5.2 (0.0-15.0) % Eos % (Auto) 0.8 (0.0-7.0) % Baso % (Auto) 0.2 (0.0-1.5) % Neut # (Auto) 7.9 H (1.4-5.7) K/uL Lymph # (Auto) 2.4 (0.6-2.4) K/uL Brooks # (Auto) 0.6 (0.0-0.8) K/uL Eos # (Auto) 0.1 (0.0-0.7) K/uL Baso # (Auto) 0.0 (0.0-0.1) K/uL Nucleated RBC % 0.0 /100WBC Nucleated RBCs # 0 K/uL Sodium 136 (136-145) mmol/L Potassium 3.8 (3.5-5.1) mmol/L Chloride 97 L (98-107) mmol/L Carbon Dioxide 27.0 (21.0-32.0) mmol/L BUN 12 (7.0-18.0) mg/dL Creatinine 0.8 (0.6-1.0) mg/dL Est Cr Clr Drug Dosing 95.24 mL/min Estimated GFR (MDRD) > 60.0 ml/min Glucose 378 H (74-106) mg/dL Calcium 8.9 (8.5-10.1) mg/dL Total Bilirubin 0.4 (0.2-1.0) mg/dL AST 11 L (15-37) IU/L ALT 22 (14-63) IU/L Alkaline Phosphatase 128 H (46-116) U/L Total Protein 7.8 (6.4-8.2) g/dL Albumin 3.8 (3.4-5.0) g/dL Globulin 4.0 (2.6-4.0) g/dL Albumin/Globulin Ratio 0.9 (0.9-1.6) HCG, Quant 8079.0 mIU/mL Urine Color YELLOW Urine Appearance SLT CLOUDY Urine pH 6.0 (5.0-8.0) Ur Specific [place] 1.015 (1.001-1.035) Urine Protein NEGATIVE (NEGATIVE) mg/dL Urine Glucose (UA) >=1000 (NEGATIVE) mg/dL Urine Ketones NEGATIVE (NEGATIVE) mg/dL Urine Occult Blood SMALL H (NEGATIVE) Urine Nitrite POSITIVE H (NEGATIVE) Urine Bilirubin NEGATIVE (NEGATIVE) Urine Urobilinogen 0.2 (<2.0) EU/dL Ur Leukocyte Esterase SMALL H (NEGATIVE) Urine RBC 1-3 (0-2/HPF) Urine WBC 15-20 (0-5/HPF) Ur Epithelial Cells RARE (NONE-FEW) Urine Bacteria FEW (NEGATIVE) Blood Type 03/03/21 Range/Units 21:43 WBC (4.0-11.0) K/uL RBC (4.30-5.90) M/uL Hgb (12.0-16.0) g/dL Hct (36.0-46.0) % MCV (80.0-98.0) fL MCH (27.0-32.0) pg MCHC (31.0-37.0) g/dL RDW Std Deviation (28.0-62.0) fl RDW Coeff of Tiffany (11.0-15.0) % Plt Count (150-400) K/uL MPV (7.40-12.00) fL Neut % (Auto) (48.0-80.0) % Lymph % (Auto) (16.0-40.0) % Brooks % (Auto) (0.0-15.0) % Eos % (Auto) (0.0-7.0) % Baso % (Auto) (0.0-1.5) % Neut # (Auto) (1.4-5.7) K/uL Lymph # (Auto) (0.6-2.4) K/uL Brooks # (Auto) (0.0-0.8) K/uL Eos # (Auto) (0.0-0.7) K/uL Baso # (Auto) (0.0-0.1) K/uL Nucleated RBC % /100WBC Nucleated RBCs # K/uL Sodium (136-145) mmol/L Potassium (3.5-5.1) mmol/L Chloride (98-107) mmol/L Carbon Dioxide (21.0-32.0) mmol/L BUN (7.0-18.0) mg/dL Creatinine (0.6-1.0) mg/dL Est Cr Clr Drug Dosing mL/min Estimated GFR (MDRD) ml/min Glucose (74-106) mg/dL Calcium (8.5-10.1) mg/dL Total Bilirubin (0.2-1.0) mg/dL AST (15-37) IU/L ALT (14-63) IU/L Alkaline Phosphatase (46-116) U/L Total Protein (6.4-8.2) g/dL Albumin (3.4-5.0) g/dL Globulin (2.6-4.0) g/dL Albumin/Globulin Ratio (0.9-1.6) HCG, Quant mIU/mL Urine Color Urine Appearance Urine pH (5.0-8.0) Ur Specific [place] (1.001-1.035) Urine Protein (NEGATIVE) mg/dL Urine Glucose (UA) (NEGATIVE) mg/dL Urine Ketones (NEGATIVE) mg/dL Urine Occult Blood (NEGATIVE) Urine Nitrite (NEGATIVE) Urine Bilirubin (NEGATIVE) Urine Urobilinogen (<2.0) EU/dL Ur Leukocyte Esterase (NEGATIVE) Urine RBC (0-2/HPF) Urine WBC (0-5/HPF) Ur Epithelial Cells (NONE-FEW) Urine Bacteria (NEGATIVE) Blood Type A POSITIVE Meds: Medications Discontinued Medications Generic Name Dose Route Start Last Admin Trade Name Freq PRN Reason Stop Dose Admin Cephalexin 500 mg 03/03/21 21:30 03/03/21 22:10 Cephalexin 500 Mg Cap PO 03/03/21 21:31 500 mg ONETIME ONE Administration Departure - Departure Time of Disposition: 22:01 Disposition: Home, Self-Care 01 Clinical Impression: Threatened miscarriage in early , Urinary tract infection - Discharge Information Prescriptions: cephALEXin [Keflex] 500 mg PO BID 7 Days #14 cap Referrals: PCP,None [Primary Care Provider] - Forms: ED Department Discharge Additional Instructions: The following information is given to patients seen in the emergency department who are being discharged to home. This information is to outline your options for follow-up care. We provide all patients seen in our emergency department with a follow-up referral. The need for follow-up, as well as the timing and circumstances, are variable depending upon the specifics of your emergency department visit. If you don't have a primary care physician on staff, we will provide you with a referral. We always advise you to contact your personal physician following an emergency department visit to inform them of the circumstance of the visit and for follow-up with them and/or the need for any referrals to a consulting specialist. The emergency department will also refer you to a specialist when appropriate. This referral assures that you have the opportunity for follow-up care with a specialist. All of these measure are taken in an effort to provide you with optimal care, which includes your follow-up. Under all circumstances we always encourage you to contact your private physician who remains a resource for coordinating your care. When calling for follow-up care, please make the office aware that this follow-up is from your recent emergency room visit. If for any reason you are refused follow-up, please contact the [facility] Emergency Department at and asked to speak to the emergency department charge nurse. [facility] Primary Care [address] [place] [address] [id number] [address] [address] Thank you for choosing the [facility] emergency department in [place] for your medical needs today. It was a pleasure caring for you. Today you were seen in the emergency department for vaginal bleeding in 1. Please start and/or continue to take your vitamin with folic acid once daily. 2. Pelvic rest until cleared by your OBGYN (no tampons, sex, etc...) 3. Tylenol as needed for pain management. 4. Follow up with your RAIL CAR OPERATOR next week. Repeat quantitative HCG should be drawn on Saturday. 5. Return to the ED as needed and as discussed. Sepsis Event Note (ED) - Evaluation Sepsis Screening Result: No Definite Risk
[2021-03-03] MEDS ORDERED: Cephalexin 500 MG Cap PO ONE (21:30)
[2021-03-03 22:26] LABS: BLOOD UREA NITROGEN,BUN 12 mg/dL (7.0-18.0); CHLORIDE,CL 97 mmol/L (98-107); GLUCOSE RANDOM 378 mg/dL (74-106); POTASSIUM,K 3.8 mmol/L (3.5-5.1); SODIUM,NA 136 mmol/L (136-145)
--- NOTE | 2021-03-03 22:39 | US ---
Indication: , bleeding Technique: Multiple grayscale and Doppler sonographic images of the pelvis. Comparison: None Findings: There is a single live intrauterine gestation with crown-rump length of 11 mm, corresponding to approximate gestational age of 7 weeks, 2 days. A heart beat is detected with rate of 150 beats per minute. Small amount of free fluid is noted in the endocervical canal. The left ovary measures 3.3 x 2.4 x 2.1 cm and appears unremarkable. Vascular flow is demonstrated to the left ovary bone spectral Doppler interrogation. The right ovary is not visualized. Impression: 1. [place] intrauterine with approximate gestational age of 7 weeks, 2 days by crown-rump length and heart rate of 150 beats per minutes. 2. Small amount of free fluid in the endocervical canal likely presents left. 3. Unremarkable left ovary. Nonvisualized right ovary. Dictated by Yun Hoffman MD @ 03/03/2021 10:38:51 PM (Electronically Signed)
== END 2021-03-03 23:16 | disposition home or self-care (01) ==
LOC: MW.ED 19:26
DX: O20.0 Threatened abortion (principal); O23.41 Unspecified infection of urinary tract in pregnancy, first trimester; I10 Essential (primary) hypertension; E11.9 Type 2 diabetes mellitus without complications; Z88.5 Allergy status to narcotic agent; Z79.4 Long term (current) use of insulin; Z3A.01 Less than 8 weeks gestation of pregnancy
CPT/HCPCS: 36415; 76817; 80053; 81001; 84702; 85025; 86900; 86901; 99284; A9270

== ENCOUNTER 2021-03-07 08:39 | Emergency (ER) | payer MEDICAID ==
--- NOTE | 2021-03-07 08:55 | EDM.PDOC ---
ED HPI GENERAL MEDICAL PROBLEM - General Chief Complaint: [employer] Problem Stated Complaint: bleeding and cramping and preganant Time Seen by Provider: 03/07/21 08:41 Source of Information: Reports: Patient History Limitations: Reports: No Limitations - History of Present Illness INITIAL COMMENTS - FREE TEXT/NARRATIVE: 40-year-old female G7, P2 approximately 8 weeks presents for left lower abdominal pain and vaginal bleeding. Patient was seen in the emergency department on March 03 for vaginal spotting. At that time she was diagnosed with a UTI and placed on Keflex. Her ultrasound revealed a normal intrauterine approximately 7 weeks and 2 days. Patient notes that she has since had increased vaginal bleeding and now passing clots. She is also having worsening left lower quadrant abdominal pain. - Related Data Allergies Allergy/AdvReac Type Severity Reaction Status Date / Time codeine Allergy Other Verified 03/07/21 08:49 Home Meds: Home Meds Insulin Glargine,Hum.Rec.Anlog [Semglee] 100 units SUBCUT DAILY 12/27/20 [History] Insulin Lispro [Admelog] 17 units SUBCUT QID 12/27/20 [History] Lixisenatide [Adlyxin] 22 units SUBCUT DAILY 12/27/20 [History] cephALEXin [Keflex] 500 mg PO BID 7 Days #14 cap 03/03/21 [Rx] Past Medical History - Past Health History Medical/Surgical History: Denies Medical/Surgical History HEENT History: Reports: None Cardiovascular History: Reports: Hypertension Respiratory History: Reports: None Gastrointestinal History: Reports: None Genitourinary History: Reports: UTI, Recurrent [employer] CONS[employer]ANT History: Reports: , Other (See Below) Other [employer] CONS[employer]ANT History: history of yeast infections Musculoskeletal History: Reports: None Neurological History: Reports: None Psychiatric History: Reports: None Endocrine/Metabolic History: Reports: Diabetes, Type II Hematologic History: Reports: None Immunologic History: Reports: None Oncologic (Cancer) History: Reports: None Dermatologic History: Reports: None - Infectious Disease History Infectious Disease History: Reports: Chicken Pox - Past Surgical History Head Surgeries/Procedures: Reports: None Female Surgical History: Reports: Section Social & Family History - Family History Family Medical History: No Pertinent Family History - Tobacco Use Tobacco Use Status *Q: Never Tobacco User - Caffeine Use Caffeine Use: Reports: Soda - Recreational Drug Use Recreational Drug Use: No ED ROS GENERAL - Review of Systems Review Of Systems: Comprehensive ROS is negative, except as noted in HPI. ED EXAM, GENERAL - Physical Exam Exam: See Below Exam Limited By: No Limitations General Appearance: Alert, WD/WN, No Apparent Distress Ears: Hearing Grossly Normal Throat/Mouth: Normal Voice, No Airway Compromise Head: Atraumatic, Normocephalic Neck: Normal Inspection Respiratory/Chest: No Respiratory Distress, Lungs Clear, Normal Breath Sounds, No Accessory Muscle Use Cardiovascular: Normal Peripheral Pulses, Tachycardia GI/Abdominal: Soft, Non-Tender Extremities: Normal Inspection Neurological: Alert Psychiatric: Normal Affect, Normal Mood Skin Exam: Warm, Dry, Intact, Normal Color Course - Vital Signs Last Recorded V/S: Last Vital Signs Temp 97.2 F 03/07/21 08:46 Pulse 103 H 03/07/21 08:46 Resp 18 03/07/21 08:46 BP 143/86 H 03/07/21 08:46 Pulse Ox 99 03/07/21 08:46 - Orders/Labs/Meds Orders: Active Orders 24 hr Category Date Time Status Saline Lock Insert [OM.PC] Stat Oth 03/07/21 08:52 Ordered Labs: Laboratory Tests 03/07/21 03/07/21 03/07/21 Range/Units 08:56 09:06 09:06 WBC 9.44 (4.0-11.0) K/uL RBC 4.75 (4.30-5.90) M/uL Hgb 13.4 (12.0-16.0) g/dL Hct 39.2 (36.0-46.0) % MCV 82.5 (80.0-98.0) fL MCH 28.2 (27.0-32.0) pg MCHC 34.2 (31.0-37.0) g/dL RDW Std Deviation 42.1 (28.0-62.0) fl RDW Coeff of Tiffany 14 (11.0-15.0) % Plt Count 229 (150-400) K/uL MPV 10.90 (7.40-12.00) fL Neut % (Auto) 70.6 (48.0-80.0) % Lymph % (Auto) 22.7 (16.0-40.0) % Cowley % (Auto) 5.5 (0.0-15.0) % Eos % (Auto) 1.0 (0.0-7.0) % Baso % (Auto) 0.2 (0.0-1.5) % Neut # (Auto) 6.7 H (1.4-5.7) K/uL Lymph # (Auto) 2.1 (0.6-2.4) K/uL Cowley # (Auto) 0.5 (0.0-0.8) K/uL Eos # (Auto) 0.1 (0.0-0.7) K/uL Baso # (Auto) 0.0 (0.0-0.1) K/uL Nucleated RBC % 0.0 /100WBC Nucleated RBCs # 0 K/uL Sodium 135 L (136-145) mmol/L Potassium 3.9 (3.5-5.1) mmol/L Chloride 96 L (98-107) mmol/L Carbon Dioxide 27.5 (21.0-32.0) mmol/L BUN 6 L (7.0-18.0) mg/dL Creatinine 0.8 (0.6-1.0) mg/dL Est Cr Clr Drug Dosing 95.24 mL/min Estimated GFR (MDRD) > 60.0 ml/min Glucose 461 H (74-106) mg/dL Calcium 8.2 L (8.5-10.1) mg/dL Total Bilirubin 0.6 (0.2-1.0) mg/dL AST 13 L (15-37) IU/L ALT 17 (14-63) IU/L Alkaline Phosphatase 135 H (46-116) U/L Total Protein 7.3 (6.4-8.2) g/dL Albumin 3.1 L (3.4-5.0) g/dL Globulin 4.2 H (2.6-4.0) g/dL Albumin/Globulin Ratio 0.7 L (0.9-1.6) HCG, Quant 2380.0 mIU/mL Urine Color YELLOW Urine Appearance SLT CLOUDY Urine pH 6.5 (5.0-8.0) Ur Specific [place] 1.010 (1.001-1.035) Urine Protein NEGATIVE (NEGATIVE) mg/dL Urine Glucose (UA) >=1000 (NEGATIVE) mg/dL Urine Ketones 40 H (NEGATIVE) mg/dL Urine Occult Blood LARGE H (NEGATIVE) Urine Nitrite NEGATIVE (NEGATIVE) Urine Bilirubin NEGATIVE (NEGATIVE) Urine Urobilinogen 0.2 (<2.0) EU/dL Ur Leukocyte Esterase NEGATIVE (NEGATIVE) Urine RBC 10-20 (0-2/HPF) Urine WBC 0-5 (0-5/HPF) Ur Epithelial Cells FEW (NONE-FEW) Urine Bacteria RARE (NEGATIVE) Blood Type 03/07/21 Range/Units 09:06 WBC (4.0-11.0) K/uL RBC (4.30-5.90) M/uL Hgb (12.0-16.0) g/dL Hct (36.0-46.0) % MCV (80.0-98.0) fL MCH (27.0-32.0) pg MCHC (31.0-37.0) g/dL RDW Std Deviation (28.0-62.0) fl RDW Coeff of Tiffany (11.0-15.0) % Plt Count (150-400) K/uL MPV (7.40-12.00) fL Neut % (Auto) (48.0-80.0) % Lymph % (Auto) (16.0-40.0) % Cowley % (Auto) (0.0-15.0) % Eos % (Auto) (0.0-7.0) % Baso % (Auto) (0.0-1.5) % Neut # (Auto) (1.4-5.7) K/uL Lymph # (Auto) (0.6-2.4) K/uL Cowley # (Auto) (0.0-0.8) K/uL Eos # (Auto) (0.0-0.7) K/uL Baso # (Auto) (0.0-0.1) K/uL Nucleated RBC % /100WBC Nucleated RBCs # K/uL Sodium (136-145) mmol/L Potassium (3.5-5.1) mmol/L Chloride (98-107) mmol/L Carbon Dioxide (21.0-32.0) mmol/L BUN (7.0-18.0) mg/dL Creatinine (0.6-1.0) mg/dL Est Cr Clr Drug Dosing mL/min Estimated GFR (MDRD) ml/min Glucose (74-106) mg/dL Calcium (8.5-10.1) mg/dL Total Bilirubin (0.2-1.0) mg/dL AST (15-37) IU/L ALT (14-63) IU/L Alkaline Phosphatase (46-116) U/L Total Protein (6.4-8.2) g/dL Albumin (3.4-5.0) g/dL Globulin (2.6-4.0) g/dL Albumin/Globulin Ratio (0.9-1.6) HCG, Quant mIU/mL Urine Color Urine Appearance Urine pH (5.0-8.0) Ur Specific [place] (1.001-1.035) Urine Protein (NEGATIVE) mg/dL Urine Glucose (UA) (NEGATIVE) mg/dL Urine Ketones (NEGATIVE) mg/dL Urine Occult Blood (NEGATIVE) Urine Nitrite (NEGATIVE) Urine Bilirubin (NEGATIVE) Urine Urobilinogen (<2.0) EU/dL Ur Leukocyte Esterase (NEGATIVE) Urine RBC (0-2/HPF) Urine WBC (0-5/HPF) Ur Epithelial Cells (NONE-FEW) Urine Bacteria (NEGATIVE) Blood Type A POSITIVE Meds: Medications Discontinued Medications Generic Name Dose Route Start Last Admin Trade Name Freq PRN Reason Stop Dose Admin Sodium Chloride 1,000 mls @ 999 mls/hr 03/07/21 09:03 03/07/21 09:21 Normal Saline IV 03/07/21 10:03 999 mls/hr .Bolus ONE Administration - Re-Assessments/Exams Free Text/Narrative Re-Assessment/Exam: 03/07/21 11:03 Ultrasonography shows evidence of incomplete . Beta hCG is downtrending. I explained the results to the patient and importance of [employer] CONSULTANT follow-up. Patient may require a D&C but not indicated at this time. Departure - Departure Time of Disposition: 11:03 Disposition: Home, Self-Care 01 Condition: Good Clinical Impression: Incomplete - Discharge Information Instructions: Incomplete Miscarriage Referrals: PCP,None [Primary Care Provider] - Forms: ED Department Discharge Additional Instructions: Please follow-up with your [employer] CONSULTANT. The following information is given to patients seen in the emergency department who are being discharged to home. This information is to outline your options for follow-up care. We provide all patients seen in our emergency department with a follow-up referral. The need for follow-up, as well as the timing and circumstances, are variable depending upon the specifics of your emergency department visit. If you don't have a primary care physician on staff, we will provide you with a referral. We always advise you to contact your personal physician following an emergency department visit to inform them of the circumstance of the visit and for follow-up with them and/or the need for any referrals to a consulting specialist. The emergency department will also refer you to a specialist when appropriate. This referral assures that you have the opportunity for follow-up care with a specialist. All of these measure are taken in an effort to provide you with optimal care, which includes your follow-up. Under all circumstances we always encourage you to contact your private ph ysician who remains a resource for coordinating your care. When calling for follow-up care, please make the office aware that this follow-up is from your recent emergency room visit. If for any reason you are refused follow-up, please contact the [facility] Emergency Department at and asked to speak to the emergency department charge nurse. Please follow up with your primary care physician. If you do not have a primary care physician, see below: [facility] [address] [place] [id number] [facility] [address] [place] [address] [facility] [address] [place] [id number] Sepsis Event Note (ED) - Evaluation Sepsis Screening Result: No Definite Risk - Focused Exam Vital Signs: Vital Signs Temp Pulse Resp BP Pulse Ox 03/07/21 08:46 97.2 F 103 H 18 143/86 H 99 - My Orders Last 24 Hours: My Active Orders 03/07/21 08:52 Saline Lock Insert [OM.PC] Stat - Assessment/Plan Last 24 Hours: My Active Orders 03/07/21 08:52 Saline Lock Insert [OM.PC] Stat
[2021-03-07] MEDS ORDERED: Sodium Chloride 0.9% 1,000 ML IV ONE (09:03)
[2021-03-07 10:05] LABS: BLOOD UREA NITROGEN,BUN 6 mg/dL (7.0-18.0); CARBON DIOXIDE,CO2 27.5 mmol/L (21.0-32.0); CHLORIDE,CL 96 mmol/L (98-107); GLUCOSE RANDOM 461 mg/dL (74-106); POTASSIUM,K 3.9 mmol/L (3.5-5.1); SODIUM,NA 135 mmol/L (136-145)
--- NOTE | 2021-03-07 10:58 | US ---
INDICATION: Vaginal bleeding, history of TECHNIQUE: Ultrasound pelvis transabdominal and transvaginal for better assessment or to better visualize the endometrium and intrauterine gestation. Real-time sonographic images with spectral and color Doppler imaging of the ovaries were obtained. COMPARISON: Ob ultrasound March 03, 2021 FINDINGS: Uterus: 7.6 x 6.2 x 10.9 cm. Normal echotexture of the myometrium. No masses. Endometrium: Transvaginal imaging was performed to better evaluate the endometrium. Endometrial thickness measures 24 mm. Previously seen intrauterine gestation is absent. There is minimal residual vascular material within the endometrium. The left ovary is normal in size contour and echogenicity. The right ovary is not well visualized. Cul-de-sac: No significant free fluid. IMPRESSION: Interval spontaneous from comparison exam with absence of previously seen intrauterine gestation with irregular, vascular thickening of the endometrial canal likely representing minimal retained products. Dictated by Angel Brice MD @ 03/07/2021 10:56:34 AM (Electronically Signed)
== END 2021-03-07 11:15 | disposition home or self-care (01) ==
LOC: MW.ED 08:39
DX: O03.4 Incomplete spontaneous abortion without complication (principal); I10 Essential (primary) hypertension; E11.9 Type 2 diabetes mellitus without complications; Z88.5 Allergy status to narcotic agent; Z79.4 Long term (current) use of insulin; Z79.899 Other long term (current) drug therapy
CPT/HCPCS: 36415; 76801; 80053; 81001; 84702; 85025; 86900; 86901; 99284; J7030

== ENCOUNTER 2021-05-15 23:25 | Emergency (ER) | payer MEDICAID ==
--- NOTE | 2021-05-16 01:50 | EDM.PDOC ---
ED HPI GENERAL MEDICAL PROBLEM - General Chief Complaint: Abdominal Pain Stated Complaint: ABDOMINAL PAIN AND CRAMPING Time Seen by Provider: 05/16/21 01:49 Source of Information: Reports: Patient History Limitations: Reports: No Limitations - History of Present Illness INITIAL COMMENTS - FREE TEXT/NARRATIVE: 40-year-old female with history of diabetes and UTI presents with abdominal pain. Abdominal pain is described as cramping, waxes and wanes over the past 2 to 3 days. Rated 9/10 at its worst, currently rated 6/10. Pain radiates from the periumbilical region to the left lateral flank. She denies fever, chills, nausea, vomiting, chest pain. She admits to diarrhea, dysuria, urinary frequency and urgency. ROS: A 10-point review of systems, other than pertinent positives and negatives as stated per HPI, is otherwise negative Past medical history: No additional pertinent history Past Surgical history: No additional pertinent history Social history: No additional pertinent history Family history: No additional pertinent history PHYSICAL EXAM General: AOx4, GCS = 15, No distress HEENT: dry mucous membrane Neck: supple, no meningismus, no Kernig or Brudzinski Cardiac: S1S2 RRR Respiratory: CTAB, no crackles or rales, no wheezing Abdomen: Soft, epigastric tenderness, no rebound or guarding, nondistended, no pulsatile mass. Back: nontender Musculoskeletal: NVI distally, no deformity Neuro: No focal deficits, CN 2 - 12 WNL. Abdomen Pain Score (Numeric/FACES): 7 - Related Data Allergies Allergy/AdvReac Type Severity Reaction Status Date / Time codeine Allergy Other Verified 05/15/21 23:29 Home Meds: Home Meds Insulin Glargine,Hum.Rec.Anlog [Semglee] 100 units SUBCUT DAILY 12/27/20 [History] Insulin Lispro [Admelog] 17 units SUBCUT QID 12/27/20 [History] Lixisenatide [Adlyxin] 22 units SUBCUT DAILY 12/27/20 [History] cephALEXin [Keflex] 500 mg PO BID 7 Days #14 cap 03/03/21 [Rx] Omeprazole Magnesium [Prilosec Otc] 20 mg PO BID #30 tablet. 05/16/21 [Rx] Phenazopyridine [Pyridium] 100 mg PO TID PRN #15 tab 05/16/21 [Rx] cephALEXin [Keflex] 500 mg PO Q8H #30 cap 05/16/21 [Rx] Past Medical History - Past Health History Medical/Surgical History: Denies Medical/Surgical History HEENT History: Reports: None Cardiovascular History: Reports: Hypertension Respiratory History: Reports: None Gastrointestinal History: Reports: None Genitourinary History: Reports: UTI, Recurrent DEAN [employer] BOYS History: Reports: , Other (See Below) Other [employer] History: history of yeast infections Musculoskeletal History: Reports: None Neurological History: Reports: None Psychiatric History: Reports: None Endocrine/Metabolic History: Reports: Diabetes, Type II Hematologic History: Reports: None Immunologic History: Reports: None Oncologic (Cancer) History: Reports: None Dermatologic History: Reports: None - Infectious Disease History Infectious Disease History: Reports: Chicken Pox - Past Surgical History Head Surgeries/Procedures: Reports: None Female Surgical History: Reports: Section Social & Family History - Family History Family Medical History: No Pertinent Family History - Caffeine Use Caffeine Use: Reports: Soda ED ROS GENERAL - Review of Systems Review Of Systems: See Below (see dictation) ED EXAM, GENERAL - Physical Exam Exam: See Below (see dictation) Course - Vital Signs Last Recorded V/S: Last Vital Signs Temp 96.1 F L 05/15/21 23:30 Pulse 94 05/16/21 01:48 Resp 16 05/16/21 01:48 BP 119/75 05/16/21 01:48 Pulse Ox 97 05/16/21 01:48 - Orders/Labs/Meds Orders: Active Orders 24 hr Category Date Time Status HCG QUALITATIVE,SERUM [CHEM] Stat Lab 05/16/21 01:48 Ordered Sodium Chloride 0.9% [Normal Saline] 1,000 ml Med 05/16/21 03:00 Ordered IV .BOLUS cefTRIAXone [Rocephin in Dextrose,Iso-Osm 1 GM/50 ML] 1 Med 05/16/21 02:35 Active gm Premix Bag 1 bag IV ONETIME Medication Orders Ceftriaxone Sodium/Dextrose 1 (gm/ Premix) 50 mls @ 100 mls/hr IV ONETIME ONE Stop: 05/16/21 03:04 Sodium Chloride (Normal Saline) 1,000 mls @ 999 mls/hr IV .BOLUS TAMANNA Labs: Laboratory Tests 05/16/21 05/16/21 05/16/21 Range/Units 01:25 01:25 01:51 WBC 11.45 H (4.0-11.0) K/uL RBC 5.34 (4.30-5.90) M/uL Hgb 14.7 (12.0-16.0) g/dL Hct 43.4 (36.0-46.0) % MCV 81.3 (80.0-98.0) fL MCH 27.5 (27.0-32.0) pg MCHC 33.9 (31.0-37.0) g/dL RDW Std Deviation 39.8 (28.0-62.0) fl RDW Coeff of Tiffany 13 (11.0-15.0) % Plt Count 326 (150-400) K/uL MPV 12.10 H (7.40-12.00) fL Neut % (Auto) 63.5 (48.0-80.0) % Lymph % (Auto) 30.0 (16.0-40.0) % Cook % (Auto) 4.4 (0.0-15.0) % Eos % (Auto) 1.8 (0.0-7.0) % Baso % (Auto) 0.3 (0.0-1.5) % Neut # (Auto) 7.3 H (1.4-5.7) K/uL Lymph # (Auto) 3.4 H (0.6-2.4) K/uL Cook # (Auto) 0.5 (0.0-0.8) K/uL Eos # (Auto) 0.2 (0.0-0.7) K/uL Baso # (Auto) 0.0 (0.0-0.1) K/uL Nucleated RBC % 0.0 /100WBC Nucleated RBCs # 0 K/uL Sodium 135 L (136-145) mmol/L Potassium 3.5 (3.5-5.1) mmol/L Chloride 99 (98-107) mmol/L Carbon Dioxide 27.8 (21.0-32.0) mmol/L BUN 5 L (7.0-18.0) mg/dL Creatinine 0.8 (0.6-1.0) mg/dL Est Cr Clr Drug Dosing TNP Estimated GFR (MDRD) > 60.0 ml/min Glucose 393 H (74-106) mg/dL Calcium 8.7 (8.5-10.1) mg/dL Total Bilirubin 0.4 (0.2-1.0) mg/dL AST 13 L (15-37) IU/L ALT 24 (14-63) IU/L Alkaline Phosphatase 109 (46-116) U/L Total Protein 7.5 (6.4-8.2) g/dL Albumin 3.5 (3.4-5.0) g/dL Globulin 4.0 (2.6-4.0) g/dL Albumin/Globulin Ratio 0.9 (0.9-1.6) Lipase 41 L (73-393) U/L Urine Color YELLOW Urine Appearance CLOUDY Urine pH 6.5 (5.0-8.0) Ur Specific [place] 1.015 (1.001-1.035) Urine Protein NEGATIVE (NEGATIVE) mg/dL Urine Glucose (UA) >=1000 (NEGATIVE) mg/dL Urine Ketones NEGATIVE (NEGATIVE) mg/dL Urine Occult Blood NEGATIVE (NEGATIVE) Urine Nitrite POSITIVE H (NEGATIVE) Urine Bilirubin NEGATIVE (NEGATIVE) Urine Urobilinogen 1.0 (<2.0) EU/dL Ur Leukocyte Esterase SMALL H (NEGATIVE) Urine RBC 0-2 (0-2/HPF) Urine WBC 30-40 (0-5/HPF) Ur Epithelial Cells MANY (NONE-FEW) Urine Bacteria 3+ H (NEGATIVE) Urine HCG, Qual (NEGATIVE) 05/16/21 Range/Units 01:51 WBC (4.0-11.0) K/uL RBC (4.30-5.90) M/uL Hgb (12.0-16.0) g/dL Hct (36.0-46.0) % MCV (80.0-98.0) fL MCH (27.0-32.0) pg MCHC (31.0-37.0) g/dL RDW Std Deviation (28.0-62.0) fl RDW Coeff of Tiffany (11.0-15.0) % Plt Count (150-400) K/uL MPV (7.40-12.00) fL Neut % (Auto) (48.0-80.0) % Lymph % (Auto) (16.0-40.0) % Cook % (Auto) (0.0-15.0) % Eos % (Auto) (0.0-7.0) % Baso % (Auto) (0.0-1.5) % Neut # (Auto) (1.4-5.7) K/uL Lymph # (Auto) (0.6-2.4) K/uL Cook # (Auto) (0.0-0.8) K/uL Eos # (Auto) (0.0-0.7) K/uL Baso # (Auto) (0.0-0.1) K/uL Nucleated RBC % /100WBC Nucleated RBCs # K/uL Sodium (136-145) mmol/L Potassium (3.5-5.1) mmol/L Chloride (98-107) mmol/L Carbon Dioxide (21.0-32.0) mmol/L BUN (7.0-18.0) mg/dL Creatinine (0.6-1.0) mg/dL Est Cr Clr Drug Dosing Estimated GFR (MDRD) ml/min Glucose (74-106) mg/dL Calcium (8.5-10.1) mg/dL Total Bilirubin (0.2-1.0) mg/dL AST (15-37) IU/L ALT (14-63) IU/L Alkaline Phosphatase (46-116) U/L Total Protein (6.4-8.2) g/dL Albumin (3.4-5.0) g/dL Globulin (2.6-4.0) g/dL Albumin/Globulin Ratio (0.9-1.6) Lipase (73-393) U/L Urine Color Urine Appearance Urine pH (5.0-8.0) Ur Specific [place] (1.001-1.035) Urine Protein (NEGATIVE) mg/dL Urine Glucose (UA) (NEGATIVE) mg/dL Urine Ketones (NEGATIVE) mg/dL Urine Occult Blood (NEGATIVE) Urine Nitrite (NEGATIVE) Urine Bilirubin (NEGATIVE) Urine Urobilinogen (<2.0) EU/dL Ur Leukocyte Esterase (NEGATIVE) Urine RBC (0-2/HPF) Urine WBC (0-5/HPF) Ur Epithelial Cells (NONE-FEW) Urine Bacteria (NEGATIVE) Urine HCG, Qual NEGATIVE (NEGATIVE) Meds: Medications Generic Name Dose Route Start Last Admin Trade Name Thaddeusq PRN Reason Stop Dose Admin Ceftriaxone Sodium/Dextrose 1 50 mls @ 100 mls/hr 05/16/21 02:35 gm/ Premix IV 05/16/21 03:04 ONETIME ONE Sodium Chloride 1,000 mls @ 999 mls/hr 05/16/21 03:00 Normal Saline IV .BOLUS TAMANNA - Re-Assessments/Exams Free Text/Narrative Re-Assessment/Exam: 05/16/21 02:47 After 1 L IV fluids and Rocephin IV in the ER, the patient improved and is currently stable for discharge. I performed a repeat exam and did not appreciate new abnormal findings. Patient exhibits normal vital signs and has a normal gait on road test. I advised the patient to return to the ER for reevaluation if symptoms worsened, including fever, worsening pain, or any other worrisome symptoms. I instructed the patient to follow up with their PCP within 2-3 days. MEDICAL DECISION MAKING: This patient was evaluated during the COVID-19 pandemic where resources and capacity might be affected. I reviewed the patients past medical records, lab and radiographic findings. I discussed the case with the patient. My differential diagnosis included: UTI, pyelonephritis, ureteral calculi, pancreatitis. Patient demonstrates UTI. There was no ketones or RBC in the urine, I do not suspect ureteral calculi. Patient has a history of diabetes and blood glucose = 393, she was given 1 L IV fluids. I do not suspect DKA needing insulin drip. Departure - Departure Time of Disposition: 02:48 Disposition: Home, Self-Care 01 Condition: Good Clinical Impression: Abdominal pain, Urinary tract infection, Hyperglycemia - Discharge Information *PRESCRIPTION DRUG MONITORING PROGRAM REVIEWED*: Not Applicable *COPY OF PRESCRIPTION DRUG MONITORING REPORT IN PATIENT PAWEL: Not Applicable Prescriptions: cephALEXin [Keflex] 500 mg PO Q8H #30 cap Omeprazole Magnesium [Prilosec Otc] 20 mg PO BID #30 tablet. Phenazopyridine [Pyridium] 100 mg PO TID PRN #15 tab PRN Reason: Abdominal Pain Instructions: Abdominal Pain, Adult, [id number], Urinary Tract Infection, Adult, Hyperglycemia, [id number] Referrals: PCP,None [Primary Care Provider] - Forms: ED Department Discharge Additional Instructions: The need for follow-up, as well as the timing and circumstances, are variable depending upon the specifics of your emergency department visit. If you don't have a primary care physician on staff, we will provide you with a referral. We always advise you to contact your personal physician following an emergency department visit to inform them of the circumstance of the visit and for follow-up with them and/or the need for any referrals to a consulting specialist. The emergency department will also refer you to a specialist when appropriate. This referral assures that you have the opportunity for follow-up care with a specialist. All of these measure are taken in an effort to provide you with optimal care, which includes your follow-up. Under all circumstances we always encourage you to contact your private physician who remains a resource for coordinating your care. When calling for follow-up care, please make the office aware that this follow-up is from your recent emergency room visit. If for any reason you are refused follow-up, please contact the [facility] Emergency Department at and asked to speak to the emergency department charge nurse. If you do not have a primary care doctor, please follow up with the clinics below within 3-5 days. [facility] [address] [place] [id number] [facility] [address] [place] [address] Sepsis Event Note (ED) - Evaluation Sepsis Screening Result: No Definite Risk - Focused Exam Vital Signs: Vital Signs Temp Pulse Resp BP BP BP Pulse Ox 05/16/21 01:48 94 16 119/75 97 05/15/21 23:30 96.1 F L 95 16 127/68 110/67 127/68 99 - My Orders Last 24 Hours: My Active Orders 05/16/21 01:48 HCG QUALITATIVE,SERUM [CHEM] Stat 05/16/21 02:35 cefTRIAXone [Rocephin in Dextrose,Iso-Osm 1 GM/50 ML] 1 gm Premix Bag 1 bag IV ONETIME 05/16/21 03:00 Sodium Chloride 0.9% [Normal Saline] 1,000 ml IV .BOLUS - Assessment/Plan Last 24 Hours: My Active Orders 05/16/21 01:48 HCG QUALITATIVE,SERUM [CHEM] Stat 05/16/21 02:35 cefTRIAXone [Rocephin in Dextrose,Iso-Osm 1 GM/50 ML] 1 gm Premix Bag 1 bag IV ONETIME 05/16/21 03:00 Sodium Chloride 0.9% [Normal Saline] 1,000 ml IV .BOLUS
[2021-05-16 02:34] LABS: BLOOD UREA NITROGEN,BUN 5 mg/dL (7.0-18.0); CARBON DIOXIDE,CO2 27.8 mmol/L (21.0-32.0); CHLORIDE,CL 99 mmol/L (98-107); GLUCOSE RANDOM 393 mg/dL (74-106); LIPASE 41 U/L (73-393); POTASSIUM,K 3.5 mmol/L (3.5-5.1); SODIUM,NA 135 mmol/L (136-145)
[2021-05-16] MEDS ORDERED: cefTRIAXone 1 GM in Premix Bag 1 BAG IV ONE (02:35)
[2021-05-16] MEDS ORDERED: Sodium Chloride 0.9% 1,000 ML IV ONE (02:53)
[2021-05-16] MEDS ORDERED: Sodium Chloride 0.9% 1,000 ML IV SCH (03:00)
== END 2021-05-16 04:08 | disposition home or self-care (01) ==
LOC: MW.ED 23:25
DX: N39.0 Urinary tract infection, site not specified (principal); E11.65 Type 2 diabetes mellitus with hyperglycemia; I10 Essential (primary) hypertension; Z79.4 Long term (current) use of insulin; Z88.5 Allergy status to narcotic agent; Z79.899 Other long term (current) drug therapy
CPT/HCPCS: 36415; 80053; 81001; 81025; 83690; 85025; 96374; 99284; J0696; J7030

== ENCOUNTER 2021-07-24 06:03 | Emergency (ER) | payer MEDICAID ==
[2021-07-24] MEDS: Nitrofurantoin Monohydrate/Macrocrystalline 100 MG Cap PO ONE (06:45)
== END 2021-07-24 08:14 | disposition home or self-care (01) ==
LOC: MW.ED 06:03
DX: N39.0 Urinary tract infection, site not specified (principal); A59.01 Trichomonal vulvovaginitis; I10 Essential (primary) hypertension; E11.9 Type 2 diabetes mellitus without complications; Z88.0 Allergy status to penicillin; Z79.4 Long term (current) use of insulin
CPT/HCPCS: 81001; 81025; 87086; 87480; 87510; 87660; 99283; A9270

== ENCOUNTER 2021-11-26 08:58 | Emergency (ER) | payer MEDICAID ==
[2021-11-26] MEDS ORDERED: Lactated Ringers 1,000 ML IV STA (09:22)
[2021-11-26] MEDS ORDERED: Ondansetron 4 MG/2 ML SDV IVPUSH ONE (09:39)
[2021-11-26] MEDS ORDERED: Ketorolac 30 MG/ML SDV IVPUSH STA (09:39)
[2021-11-26 09:58] LABS: HEMOGLOBIN A1C 11.5 %
[2021-11-26 10:01] LABS: CARBON DIOXIDE,CO2 26.6 mmol/L (21.0-32.0); POTASSIUM,K 4.2 mmol/L (3.5-5.1)
[2021-11-26] MEDS ORDERED: Sodium Chloride 0.9% 1,000 ML IV SCH (10:15)
[2021-11-26] MEDS ORDERED: Dicyclomine 10 MG Cap PO ONE (11:36)
[2021-11-26] MEDS ORDERED: Iopamidol 755 MG/ML 500 ML Multipack Bottle IVPUSH STA (17:58)
== END 2021-11-26 13:25 | disposition home or self-care (01) ==
LOC: MW.ED 08:58
DX: R10.9 Unspecified abdominal pain (principal); E11.65 Type 2 diabetes mellitus with hyperglycemia; E11.42 Type 2 diabetes mellitus with diabetic polyneuropathy; R11.0 Nausea; I10 Essential (primary) hypertension; Z86.16 Personal history of COVID-19
CPT/HCPCS: 36415; 74177; 80053; 81003; 81025; 82009; 82803; 82947; 83036; 83605; 83735; 85025; 85610; 93005; 96361; 96374; 96375; 99284; A9270; J1885; J2405; J7030; J7120; Q9967; 93010

== ENCOUNTER 2024-04-27 19:45 | Emergency (ER) | payer SELFPAY ==
[2024-04-27] MEDS: Acetaminophen 500 MG Tab PO ONE (21:17)
== END 2024-04-27 22:21 | disposition home or self-care (01) ==
LOC: MW.ED 19:45
DX: S69.92XA Unspecified injury of left wrist, hand and finger(s), initial encounter (principal); I10 Essential (primary) hypertension; E11.9 Type 2 diabetes mellitus without complications; Z88.8 Allergy status to other drugs, medicaments and biological substances; Z79.4 Long term (current) use of insulin; Z79.899 Other long term (current) drug therapy; W19.XXXA Unspecified fall, initial encounter
CPT/HCPCS: 73110; 73130; 99283; A9270

== ENCOUNTER 2024-07-07 19:59 | Emergency (ER) | payer OTHER ==
[2024-07-07] MEDS: traMADol 50 MG Tab PO ONE (22:01)
== END 2024-07-07 22:04 | disposition home or self-care (01) ==
LOC: MW.ED 19:59
DX: S49.91XA Unspecified injury of right shoulder and upper arm, initial encounter (principal); I10 Essential (primary) hypertension; E11.9 Type 2 diabetes mellitus without complications; Z88.8 Allergy status to other drugs, medicaments and biological substances; Z79.899 Other long term (current) drug therapy; Z75.8 Other problems related to medical facilities and other health care; W19.XXXA Unspecified fall, initial encounter
CPT/HCPCS: 73030; 99283; A9270

== ENCOUNTER 2024-07-15 17:23 | Emergency (ER) | payer OTHER ==
[2024-07-15] MEDS ORDERED: Sodium Chloride 0.9% 10 ML Syringe FLUSH PRN (18:10)
[2024-07-15] MEDS ORDERED: Sodium Chloride 0.9% 2.5 ML Syringe FLUSH PRN (18:10)
[2024-07-15] MEDS: Ondansetron 4 MG/2 ML SDV IVPUSH STA (18:56)
[2024-07-15] MEDS: Sodium Chloride 0.9% 1,000 ML IV STA (18:56)
[2024-07-15] MEDS: Ketorolac 30 MG/ML SDV IVPUSH STA (18:56)
[2024-07-15 19:06] LABS: BASOPHILS ABSOLUTE AUTO 0.05 K/uL (0.00-0.20); BASOPHILS PERCENT AUTO 0.6 % (0.0-1.0); EOSINOPHILS ABSOLUTE AUTO 0.11 K/uL (0.00-0.45); EOSINOPHILS PERCENT AUTO 1.2 % (0.0-6.0); HEMATOCRIT 31.7 % (37.0-47.0); HEMOGLOBIN 10.4 g/dL (12.0-16.0); IMMATURE GRAN ABSOLUTE AUTO 0.01 K/uL (0.00-0.05); IMMATURE GRAN PERCENT AUTO 0.1 % (0.0-0.4); LYMPHOCYTES ABSOLUTE AUTO 2.24 K/uL (1.00-4.80); LYMPHOCYTES PERCENT AUTO 25.3 % (24.0-44.0); MEAN CORPUSCULAR HEMOGLOBIN 26.3 pg (28.0-32.0); MEAN CORPUSCULAR HGB CONC 32.8 g/dL (32.0-36.0); MEAN CORPUSCULAR VOLUME 80.1 fL (83.0-99.0); MEAN PLATELET VOLUME 12.2 fL (9.4-12.3); MONOCYTES ABSOLUTE AUTO 0.55 K/uL (0.00-0.80); MONOCYTES PERCENT AUTO 6.2 % (0.0-8.0); NEUTROPHILS ABSOLUTE AUTO 5.88 K/uL (1.80-7.70); NEUTROPHILS PERCENT AUTO 66.6 % (41.0-71.0); PLATELET COUNT,PLT 231 K/uL (150-400); RED BLOOD CELL COUNT 3.96 M/uL (4.10-5.30); WHITE BLOOD CELL COUNT,WBC 8.84 K/uL (3.9-11.3)
[2024-07-15] MEDS: Iopamidol 755 MG/ML 500 ML Multipack Bottle IVPUSH STA (19:11)
[2024-07-15] MEDS ORDERED: Iopamidol 755 MG/ML 500 ML Multipack Bottle IVPUSH STA (19:11)
[2024-07-15 19:31] LABS: ALBUMIN 3.3 g/dL (3.4-5.0); BILIRUBIN TOTAL 0.3 mg/dL (0.2-1.0); CALCIUM 8.4 mg/dL (8.5-10.1); CARBON DIOXIDE,CO2 26.1 mmol/L (21.0-32.0); CREATININE 0.7 mg/dL (0.6-1.0); EST CRCL DRUG DOSING (CG) 105.61 mL/min; POTASSIUM,K 3.5 mmol/L (3.5-5.1); PROTEIN TOTAL,TP 6.5 g/dL (6.4-8.2)
[2024-07-15 20:45] LABS: APPEARANCE,URINE CLEAR; BILIRUBIN,URINE NEGATIVE (NEGATIVE); COLOR,URINE YELLOW; GLUCOSE,URINE NEGATIVE (NEGATIVE); KETONES,URINE NEGATIVE (NEGATIVE); LEUKOCYTE ESTERASE,URINE NEGATIVE (NEGATIVE); NITRITE,URINE POSITIVE (NEGATIVE); OCCULT BLOOD,URINE NEGATIVE (NEGATIVE); PROTEIN,URINE NEGATIVE (NEGATIVE)
[2024-07-15 20:52] LABS: BACTERIA,URINE 2+ (NEGATIVE); EPITHELIAL CELLS,URINE RARE (NONE-FEW); RBC,URINE 0-1 (0-2/HPF); WBC,URINE 0-1 (0-5/HPF)
== END 2024-07-15 21:18 | disposition home or self-care (01) ==
LOC: MW.ED 17:23
DX: K80.20 Calculus of gallbladder without cholecystitis without obstruction (principal); N30.00 Acute cystitis without hematuria; D50.9 Iron deficiency anemia, unspecified; I10 Essential (primary) hypertension; E11.9 Type 2 diabetes mellitus without complications; Z98.84 Bariatric surgery status; Z88.5 Allergy status to narcotic agent; Z79.899 Other long term (current) drug therapy; Z75.8 Other problems related to medical facilities and other health care
CPT/HCPCS: 36415; 74177; 76705; 80053; 81001; 83690; 84703; 85025; 87086; 87088; 87186; 96361; 96374; 99284; J2405; J7030; Q9967; 99283; J1885